=== PATIENT | male | born 1955 | race Caucasian/White ===

== ENCOUNTER → 2021-11-03 08:03 | Outpatient (BNVA) | payer OTHER, SELFPAY | PROVIDERS: PCP Internal Medicine; Visit Provider Internal Medicine Rheumatology | DX: Z79.899 Other long term (current) drug therapy (principal) ==

== ENCOUNTER 2022-03-30 10:57 | Outpatient (REF) | payer OTHER, MEDICARE, SELFPAY ==
[2022-03-30 11:12] LABS: MANUAL DIFF FLAG NO
[2022-03-30 11:47] LABS: Basophils Percent Auto 0.6 % (0-2); Eosinophils Absolute Auto 0.1 X10*3/uL (0.0-0.4); Hematocrit 45.3 % (42.0-52.0); Hemoglobin 14.4 g/dl (14.0-18.0); Imm Gran Abs Auto 0.01 X10*3/uL (0.00-0.03); Imm Gran Pct Auto 0.1 % (0.0-0.4); Lymphocytes Absolute Auto 1.5 X10*3/uL (1.2-4.9); Lymphocytes Percent Auto 22.3 % (20-40); Mean Corpuscular HGB Conc 31.8 g/dl (31.0-36.0); Mean Corpuscular Hemoglobin 28.5 pg (27.0-33.0); Mean Corpuscular Volume 89.7 fL (80.0-98.0); Mean Platelet Volume 8.9 fL (9.4-12.4); Monocytes Absolute Auto 0.6 X10*3/uL (0.1-1.2); Monocytes Percent Auto 8.2 % (2-11); Neutrophils Absolute Auto 4.6 x10*3/uL (2.0-8.3); Neutrophils Percent Auto 67.8 % (45-73); Platelet Count 297 X10*3/uL (160-400); Red Blood Count 5.05 X10*6/uL (4.60-5.80); White Blood Count 6.7 X10*3/uL (4.8-10.8)
[2022-03-30 12:10] LABS: Alanine Aminotransferase 13 U/L (0-40); Aspartate Amino Transferase 19 U/L (5-37); Estimated Glomerular Filt Rate > 60
[2022-03-30 12:26] LABS: Erythrocyte Sedimentation Rate 32 MM/HR (0-15)
== END 2022-03-30 10:58 | disposition home or self-care (01) ==
LOC: HO.LAB 10:57
PROVIDERS: PCP Internal Medicine; Visit Provider Internal Medicine Rheumatology
DX: M05.9 Rheumatoid arthritis with rheumatoid factor, unspecified (principal); Z79.899 Other long term (current) drug therapy
CPT/HCPCS: 36415; 82565; 84450; 84460; 85025; 85652; 86140

== ENCOUNTER 2022-07-30 10:18 | Outpatient (REF) | payer OTHER, MEDICARE, SELFPAY ==
[2022-07-30 10:27] LABS: MANUAL DIFF FLAG NO
[2022-07-30 10:52] LABS: Basophils Percent Auto 0.5 % (0-2); Eosinophils Absolute Auto 0.1 X10*3/uL (0.0-0.4); Hematocrit 47.5 % (42.0-52.0); Hemoglobin 15.3 g/dl (14.0-18.0); Imm Gran Abs Auto 0.02 X10*3/uL (0.00-0.03); Imm Gran Pct Auto 0.3 % (0.0-0.4); Lymphocytes Absolute Auto 1.6 X10*3/uL (1.2-4.9); Lymphocytes Percent Auto 26.9 % (20-40); Mean Corpuscular HGB Conc 32.2 g/dl (31.0-36.0); Mean Corpuscular Hemoglobin 29.4 pg (27.0-33.0); Mean Corpuscular Volume 91.3 fL (80.0-98.0); Mean Platelet Volume 9.1 fL (9.4-12.4); Monocytes Absolute Auto 0.5 X10*3/uL (0.1-1.2); Monocytes Percent Auto 8.9 % (2-11); Neutrophils Absolute Auto 3.6 x10*3/uL (2.0-8.3); Neutrophils Percent Auto 62.4 % (45-73); Platelet Count 219 X10*3/uL (160-400); White Blood Count 5.8 X10*3/uL (4.8-10.8)
[2022-07-30 11:19] LABS: Alanine Aminotransferase 28 U/L (0-40); Aspartate Amino Transferase 25 U/L (5-37); C Reactive Protein 0.17 mg/dL (< or = 0.50); Estimated Glomerular Filt Rate > 60
[2022-07-30 11:38] LABS: Erythrocyte Sedimentation Rate 3 MM/HR (0-15)
== END 2022-07-30 10:19 | disposition home or self-care (01) ==
LOC: HO.LAB 10:18
PROVIDERS: PCP Internal Medicine; Visit Provider Internal Medicine Rheumatology
DX: M05.9 Rheumatoid arthritis with rheumatoid factor, unspecified (principal); Z79.899 Other long term (current) drug therapy
CPT/HCPCS: 36415; 82565; 84450; 84460; 85025; 85652; 86140

== ENCOUNTER → 2022-08-06 08:06 | Outpatient (BNVA) | payer OTHER, MEDICARE, SELFPAY | PROVIDERS: PCP Internal Medicine; Visit Provider Internal Medicine Rheumatology | DX: Z13.89 Encounter for screening for other disorder (principal) ==

== ENCOUNTER 2022-11-19 08:03 | Outpatient (REF) | payer OTHER, MEDICARE, SELFPAY ==
[2022-11-19 08:17] LABS: MANUAL DIFF FLAG NO
[2022-11-19 08:34] LABS: Basophils Percent Auto 0.5 % (0-2); Eosinophils Absolute Auto 0.1 X10*3/uL (0.0-0.4); Eosinophils Percent Auto 1.9 % (0-4); Hematocrit 45.4 % (42.0-52.0); Hemoglobin 14.7 g/dl (14.0-18.0); Imm Gran Abs Auto 0.02 X10*3/uL (0.00-0.03); Imm Gran Pct Auto 0.3 % (0.0-0.4); Lymphocytes Absolute Auto 1.6 X10*3/uL (1.2-4.9); Lymphocytes Percent Auto 27.1 % (20-40); Mean Corpuscular HGB Conc 32.4 g/dl (31.0-36.0); Mean Corpuscular Hemoglobin 30.2 pg (27.0-33.0); Mean Corpuscular Volume 93.4 fL (80.0-98.0); Mean Platelet Volume 9.1 fL (9.4-12.4); Monocytes Absolute Auto 0.6 X10*3/uL (0.1-1.2); Monocytes Percent Auto 10.7 % (2-11); Neutrophils Absolute Auto 3.5 x10*3/uL (2.0-8.3); Neutrophils Percent Auto 59.5 % (45-73); Platelet Count 220 X10*3/uL (160-400); Red Blood Count 4.86 X10*6/uL (4.60-5.80); Red Cell Distribution Width 14.6 % (11.0-16.0); White Blood Count 5.8 X10*3/uL (4.8-10.8)
[2022-11-19 09:04] LABS: Alanine Aminotransferase 22 U/L (0-40); Aspartate Amino Transferase 23 U/L (5-37); Estimated Glomerular Filt Rate > 60
[2022-11-19 09:25] LABS: Erythrocyte Sedimentation Rate 6 MM/HR (0-15)
== END 2022-11-19 08:04 | disposition home or self-care (01) ==
LOC: HO.LAB 08:03
PROVIDERS: Visit Provider Internal Medicine Rheumatology
DX: M05.9 Rheumatoid arthritis with rheumatoid factor, unspecified (principal); Z79.899 Other long term (current) drug therapy
CPT/HCPCS: 36415; 82565; 84450; 84460; 85025; 85652; 86140

== ENCOUNTER 2022-11-19 08:16 | Outpatient (REF) | payer OTHER, MEDICARE, SELFPAY ==
--- NOTE | ~2022-11-19 | XR_ITS ---
EXAMINATION: XR KNEE, RIGHT CLINICAL INFORMATION: Rheumatoid arthritis with joint COMPARISON: None available. TECHNIQUE: Three views of the right knee. FINDINGS: Bone alignment is normal. No fracture or dislocation. Bone mineralization is normal. No erosions. Small osteophytes at the patellofemoral and femoral tibial joint. No significant joint effusion. XR/XR knee RT 3V IMPRESSION: Mild degenerative changes.
== END 2022-11-19 08:17 | disposition home or self-care (01) ==
LOC: HO.XRAY 08:16
PROVIDERS: Visit Provider Internal Medicine Rheumatology
DX: M05.9 Rheumatoid arthritis with rheumatoid factor, unspecified (principal)
CPT/HCPCS: 73562

== ENCOUNTER → 2022-11-23 08:00 | Outpatient (BNVA) | payer OTHER, MEDICARE, SELFPAY | PROVIDERS: PCP Internal Medicine; Visit Provider Internal Medicine Rheumatology ==

== ENCOUNTER 2023-03-19 09:56 | Outpatient (REF) | payer OTHER, MEDICARE, SELFPAY | END 2023-03-19 09:57 | disposition home or self-care (01) | LOC: HO.LAB 09:56 | PROVIDERS: PCP Internal Medicine; Visit Provider Internal Medicine Rheumatology | DX: M05.9 Rheumatoid arthritis with rheumatoid factor, unspecified (principal); Z79.899 Other long term (current) drug therapy | CPT/HCPCS: 36415; 82565; 84450; 84460; 85025; 85652; 86140 ==

== ENCOUNTER 2023-03-25 08:05 | Outpatient (AMB) | payer OTHER, MEDICARE, SELFPAY ==
--- NOTE | 2023-03-25 08:15 | MHC.OFFVIS ---
Intake Vital Signs 03/25/23 08:20 Height 5 ft 10 in Weight 192 lb 7.417 oz BMI 27.6 BP 130/72 Blood Pressure Location Lt brachial Position Sitting Pulse 81 Pulse Source Pulse Oximeter Temp 97.2 F Temp Source Skin Pulse Oximetry (%) 95 Oxygen Delivery Method Room Air Intake Visit Reasons: RA Intake Note: Patient presents today to follow up on RA. 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 Accompanied by: Self / Same As Patient Allergies NUTS Allergy (Intermediate, Uncoded 03/25/23 08:15) ITCHY THROAT STRAWBERRY Allergy (Intermediate, Uncoded 03/25/23 08:15) ITCHY THROAT Medication List - Last Reconciled 03/25/23 by Isael Vasquez MD albuterol sulfate 90 mcg/actuation (ProAir HFA) 2 puffs inhalation Q6H PRN finasteride 5 mg PO DAILY folic acid 1 mg PO DAILY hydrochlorothiazide 25 mg PO DAILY hydrocortisone 2.5% 1 appl topical BID PRN lisinopril 20 mg PO DAILY metformin ER 500 mg PO BID methotrexate sodium 15 mg (6 x 2.5 mg) PO QWEEK sulfasalazine one tab by mouth 5 times a day tadalafil 5 mg PO DAILY HPI HPI Comments History of Present Illness Details The patient returns for evaluation of his rheumatoid arthritis. He remains on 15 mg weekly methotrexate, folic acid 1 mg daily, and 2500 mg sulfasalazine spread through the day. He notes some pain in the right lateral knee. The knee had been bothersome before. It is more noticeable on stairs. There is no swelling seen. He also has some discomfort in the left wrist and right 5th PIP joint. There do not appear to be any side effects with the medications. He remains on finasteride for BPH and his blood pressure medicines. [facility] Medical History (Updated 11/23/22 @ 08:19 by Isael Vasquez MD) BPH associated with nocturia Long-term use of immunosuppressant medication Hypertension Type II diabetes mellitus with nephropathy Seropositive rheumatoid arthritis Social History Household Members: Spouse Housing: House Are you a primary direct care staffer to a significant other at home: No Do you presently have visiting nurse or other home services: No 75 years or older and lives alone: No Alcohol intake: never Patient Tobacco Use Status: Former Tobacco user Years Smoked: 12-13 years ago e-Cigarette/Vaping Use: Never Used service: No Current occupational status: employed 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 Card Details: Negative chest pain, edema and syncope Resp Details: Negative for SOB, cough and wheezing GI Details: Negative indigestion/heartburn, nausea, abdominal pain, bowel changes, diarrhea, constipation and bloody stool. Skin/Breast Details: He notes a slightly uncomfortable patch of red skin at the apex of the skull. Negative for itching, rash, hives, Raynaud's symptoms, sun sensitivity, and skin cancer Reese/Lymph Details: Negative for excessive bruising or bleeding. Physical Exam Vital Signs: Last Vital Signs Temp 97.2 F 03/25/23 08:20 Pulse 81 03/25/23 08:20 BP 130/72 03/25/23 08:20 Pulse Ox 95 03/25/23 08:20 Oxygen Delivery Method Room Air 03/25/23 08:20 BMI result Body Mass Index 27.6 APPEARANCE: Patient in no acute distress EYES no redness, pupils equal and reactive to light, eyelids normal EXTREMITIES: No edema, no calf tenderness, normal peripheral pulses. SKIN: There is a circular spot of slightly red skin the apex of the skull. This is minimally tender. The skin is slightly thickened suggesting underlying sebaceous cyst. I do not see any changes of the skin surface otherwise. JOINT EXAM: ?? JOINT EXAM: ?? Cervical Spine:.? Full range of motion without pain; no tenderness. Thoracic Spine:.? No scoliosis.? No tenderness on palpation. Lumbar Spine:.? Alignment normal.? Full range of motion without pain, no tenderness. Chest Wall:.? No tenderness, swelling, increased warmth or erythema. Hands:.? Right: There is slight pain with range of motion at the 5th PIP which shows some mild bony enlargement and mild tenderness. Other small joints in the hands done seem to be tender but there is some minimal bony enlargement at the PIP joints.? There is no soft tissue swelling or tenderness in the joints.? There is mild bony enlargement and tenderness at the base of the thumb.? He has no triggering, flexor tendon tenderness, increased warmth or erythema.? There is no thenar atrophy or sensory loss.? Left: Slight bony enlargement at the thumb IP and other PIP joints without tenderness. No soft tissue swelling, triggering, thenar atrophy or sensory loss. Wrists:? Right:? Mild pain with flexion at 45 degrees or extension at 30 degrees with some mild tenderness.? He has probably some slight soft tissue swelling but no redness or warmth.? Left:? Mild pain with flexion or extension at 60 degrees.? Mild tenderness with no swelling, redness or warmth.? Elbows:? Right:? Pain-free range of motion with no tenderness over the joint space or epicondyles.? No soft tissue swelling. Left: Normal pain-free range of motion without tenderness, swelling, increased warmth or erythema. Shoulders:?? Full range of motion without pain. No tenderness, weakness, swelling, increased warmth or erythema. Hips:.? Full range of motion without pain. Hip bursa:.? No tenderness. Knees:? Right: Slight lateral pain felt with the extremes of full extension. There is some minimal lateral compartment tenderness. There is some mild patellofemoral crepitus without redness or effusion. No popliteal tenderness or swelling.? No ligamentous laxity.? Left: ? Normal pain-free range of motion with mild patellofemoral crepitus.? No effusion, tenderness, swelling, increased warmth or erythema.? Ankles:.? Normal pain-free range of motion without tenderness, swelling, increased warmth or erythema. Feet:? Normal pain-free range of motion with mild 1st MTP bony enlargement.? No? tenderness, soft tissue swelling, increased warmth or erythema. ? ? Results Reviewed Results Reviewed: Laboratory Tests 03/19/23 10:15 WBC 5.7 Hgb 14.0 ESR 9 Creatinine 0.78 AST 19 ALT 14 C-Reactive Protein 0.[address] [address] XRay Report Signed Patient: Hany aGle : 1955 Acct:[id number] Age/Sex: 67 / M ADM Date: 11/19/[address]: Isael Vasquez MD Ordering Physician: Isael Vasquez MD Date of Service: 11/19/22 Procedure(s): XR knee RT 3V Accession Number(s): [id number] cc: Isael Vasquez MD~ EXAMINATION: XR KNEE, RIGHT CLINICAL INFORMATION: Rheumatoid arthritis with joint COMPARISON: None available. TECHNIQUE: Three views of the right knee. FINDINGS: Bone alignment is normal. No fracture or dislocation. Bone mineralization is normal. No erosions. Small osteophytes at the patellofemoral and femoral tibial joint. No significant joint effusion. XR/XR knee RT 3V IMPRESSION: Mild degenerative changes. Dictated By: Kaylen Cruz MD Assessment & Plan Assessment & Plan (1) Osteoarthritis of right knee: Code(s): M17.11 - Unilateral primary osteoarthritis, right knee (2) Long-term use of immunosuppressant medication: Code(s): Z79.899 - Other terminal clerk (current) drug therapy (3) Seropositive rheumatoid arthritis: Comment: Onset mid-2007; pos RF, MARCO. CCP Ab. sulfasalazine started 2008 Methotrexate added 12/29; ran out of methtrexate November 2021; methotrexate restarted 03/2022 Code(s): M05.9 - Rheumatoid arthritis with rheumatoid factor, unspecified Plan Rheumatoid arthritis with I believe fairly good control of synovitis with current treatment. The right wrist had changes of OA on previous x-ray from 2017 at [place]. Similarly a lot of the PIP changes I think are from osteoarthritis. The right knee has some mild lateral compartment osteophytes and some tenderness consistent with osteoarthritis. I demonstrated some quadriceps exercises for him to pursue for that. He could also be referred for physical therapy if need be. I think he should continue with current medications. The lab work looks good and should be repeated again in 2 months and 4 months. He has a red spot on his scalp. This could be a underlying sebaceous cyst or localized skin irritation from his shaving his head. I told him to watch this and if the redness increased he should see PCP or urgent care to consider some oral antibiotics. In the meantime he could try some topical bacitracin or Neosporin. I will order some hand films to see if he has any signs of a progressive erosive arthritis but I think it is likely to show mostly OA. Follow-up in 4 months is recommended. Orders: Orders C Reactive Protein Today M05.9 - Rheumatoid arthritis with rheumatoid factor, unspecified Alanine Aminotransferase Today M05.9 - Rheumatoid arthritis with rheumatoid factor, unspecified, Z79.899 - Other intermediate (current) drug therapy Aspartate Amino Transferase Today M05.9 - Rheumatoid arthritis with rheumatoid factor, unspecified, Z79.899 - Other intermediate (current) drug therapy Complete Blood Count Auto Diff Today M05.9 - Rheumatoid arthritis with rheumatoid factor, unspecified, Z79.899 - Other intermediate (current) drug therapy XR hand LT min 3V Today M05.9 - Rheumatoid arthritis with rheumatoid factor, unspecified XR hand RT min 3V Today M05.9 - Rheumatoid arthritis with rheumatoid factor, unspecified Erythrocyte Sedimentation Rate Today M05.9 - Rheumatoid arthritis with rheumatoid factor, unspecified Creatinine Today M05.9 - Rheumatoid arthritis with rheumatoid factor, unspecified, Z79.899 - Other intermediate (current) drug therapy Coding Level of Care Code Est Pt Level 3 (81707) Diagnoses Osteoarthritis of right knee M17.11 Long-term use of immunosuppressant medication Z79.899 Seropositive rheumatoid arthritis M05.9
[2023-03-25 08:20] VITALS: BP 130/72; PULSE 81; TEMP 36.2; O2SAT 95; BMI 27.6
== END 2023-03-25 08:53 | disposition home or self-care (01) ==
PROVIDERS: PCP Internal Medicine; Visit Provider Internal Medicine Rheumatology
DX: M05.79 Rheumatoid arthritis with rheumatoid factor of multiple sites without organ or systems involvement (principal); Z79.631 Long term (current) use of antimetabolite agent; M17.11 Unilateral primary osteoarthritis, right knee
CPT/HCPCS: 99214

== ENCOUNTER → 2023-03-25 08:05 | Outpatient (BNVA) | payer OTHER, MEDICARE, SELFPAY | PROVIDERS: PCP Internal Medicine; Visit Provider Internal Medicine Rheumatology ==

== ENCOUNTER 2023-04-05 09:54 | Outpatient (REF) | payer OTHER, MEDICARE, SELFPAY ==
--- NOTE | ~2023-04-05 | XR_ITS ---
EXAMINATION: XR HAND, RIGHT CLINICAL INFORMATION: Rheumatoid arthritis with rheumatoid factor. COMPARISON: None available. TECHNIQUE: PA, lateral, and oblique views of the right hand. FINDINGS: Bony alignment and mineralization are normal. There is a neutral ulnar variance. There is mild osteoarthritic change of the interphalangeal joint of the thumb. No fracture or dislocation is seen. The proximal and distal carpal rows are intact. There is mild osteoarthritic change of the first carpometacarpal joint. There is marked narrowing of the radiocarpal joint, with peripheral osteophyte formation. No abnormal bone erosion is seen. The ulnar styloid is intact. There is no focal soft tissue swelling, gas or foreign body. XR/XR hand LT min 3V IMPRESSION: 1. There is marked osteoarthritic change of the right radiocarpal joint. 2. There is mild osteoarthritic change of the interphalangeal joint of the thumb. 3. No abnormal bone erosion is seen. 4. There is no fracture or dislocation. EXAMINATION: XR HAND, LEFT CLINICAL INFORMATION: Rheumatoid arthritis with rheumatoid factor. COMPARISON: None available. TECHNIQUE: PA, lateral, and oblique views of the left hand. FINDINGS: Bony alignment and mineralization are normal. There is a neutral ulnar variance. There is mild osteoarthritic change of the interphalangeal joint of the thumb, with small periarticular calcification. Subchondral cyst formation is suspected of the second metacarpal head. No fracture or dislocation is seen. The proximal and distal carpal rows are intact. There is marked narrowing of the radiocarpal joint. No abnormal bone erosion is seen. The ulnar styloid is intact. There is no focal soft tissue swelling, gas or foreign body. IMPRESSION: 1. There is marked osteoarthritic change of the radiocarpal joint. 2. There is mild osteoarthritic change of the interphalangeal joint of the thumb. 3. No abnormal bone erosion is seen. 4. No fracture or dislocation is seen.
--- NOTE | ~2023-04-05 | XR_ITS ---
EXAMINATION: XR HAND, RIGHT CLINICAL INFORMATION: Rheumatoid arthritis with rheumatoid factor. COMPARISON: None available. TECHNIQUE: PA, lateral, and oblique views of the right hand. FINDINGS: Bony alignment and mineralization are normal. There is a neutral ulnar variance. There is mild osteoarthritic change of the interphalangeal joint of the thumb. No fracture or dislocation is seen. The proximal and distal carpal rows are intact. There is mild osteoarthritic change of the first carpometacarpal joint. There is marked narrowing of the radiocarpal joint, with peripheral osteophyte formation. No abnormal bone erosion is seen. The ulnar styloid is intact. There is no focal soft tissue swelling, gas or foreign body. XR/XR hand RT min 3V IMPRESSION: 1. There is marked osteoarthritic change of the right radiocarpal joint. 2. There is mild osteoarthritic change of the interphalangeal joint of the thumb. 3. No abnormal bone erosion is seen. 4. There is no fracture or dislocation. EXAMINATION: XR HAND, LEFT CLINICAL INFORMATION: Rheumatoid arthritis with rheumatoid factor. COMPARISON: None available. TECHNIQUE: PA, lateral, and oblique views of the left hand. FINDINGS: Bony alignment and mineralization are normal. There is a neutral ulnar variance. There is mild osteoarthritic change of the interphalangeal joint of the thumb, with small periarticular calcification. Subchondral cyst formation is suspected of the second metacarpal head. No fracture or dislocation is seen. The proximal and distal carpal rows are intact. There is marked narrowing of the radiocarpal joint. No abnormal bone erosion is seen. The ulnar styloid is intact. There is no focal soft tissue swelling, gas or foreign body. IMPRESSION: 1. There is marked osteoarthritic change of the radiocarpal joint. 2. There is mild osteoarthritic change of the interphalangeal joint of the thumb. 3. No abnormal bone erosion is seen. 4. No fracture or dislocation is seen.
[2023-04-05 10:14] LABS: MANUAL DIFF FLAG NO
[2023-04-05 10:52] LABS: Basophils Percent Auto 0.6 % (0-2); Eosinophils Absolute Auto 0.1 X10*3/uL (0.0-0.4); Eosinophils Percent Auto 1.3 % (0-4); Hematocrit 44.7 % (42.0-52.0); Hemoglobin 14.3 g/dl (14.0-18.0); Imm Gran Abs Auto 0.01 X10*3/uL (0.00-0.03); Imm Gran Pct Auto 0.2 % (0.0-0.4); Mean Corpuscular Hemoglobin 29.7 pg (27.0-33.0); Mean Corpuscular Volume 92.7 fL (80.0-98.0); Mean Platelet Volume 9.2 fL (9.4-12.4); Monocytes Absolute Auto 0.4 X10*3/uL (0.1-1.2); Monocytes Percent Auto 8.3 % (2-11); Neutrophils Absolute Auto 3.6 x10*3/uL (2.0-8.3); Neutrophils Percent Auto 69.6 % (45-73); Platelet Count 213 X10*3/uL (160-400); Red Blood Count 4.82 X10*6/uL (4.60-5.80); Red Cell Distribution Width 14.6 % (11.0-16.0); White Blood Count 5.2 X10*3/uL (4.8-10.8)
[2023-04-05 11:22] LABS: Alanine Aminotransferase 20 U/L (0-40); Aspartate Amino Transferase 23 U/L (5-37); C Reactive Protein 0.24 mg/dL (< or = 0.50); Estimated Glomerular Filt Rate > 60
[2023-04-05 11:28] LABS: Erythrocyte Sedimentation Rate 6 MM/HR (0-15)
== END 2023-04-05 09:55 | disposition home or self-care (01) ==
LOC: HO.LAB 09:54
PROVIDERS: PCP Internal Medicine; Visit Provider Internal Medicine Rheumatology
DX: M05.9 Rheumatoid arthritis with rheumatoid factor, unspecified (principal); Z79.899 Other long term (current) drug therapy
CPT/HCPCS: 36415; 73130; 82565; 84450; 84460; 85025; 85652; 86140

== ENCOUNTER 2023-07-27 08:17 | Outpatient (AMB) | payer OTHER, MEDICARE, SELFPAY ==
--- NOTE | 2023-07-27 08:31 | MHC.OFFVIS ---
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 Gale, 67yoM returns for follow-up his rheumatoid arthritis. He remains on 15 mg weekly methotrexate, folic acid 1 mg daily, and 2500 mg sulfasalazine spread through the day. He recounts as at last visit that there is pain in the right lateral knee. The knee had been bothersome before. It is more noticeable on stairs. There is no swelling seen. He also has some discomfort in the left wrist and right 5th PIP joint. 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 He reports that he has been to Derm for excision of cysts, one one the of head and the other left upper back. He also has a nodule to his right elbow that hurts if he bears weight on the elbow. There do not appear to be any side effects with the medications. He has diabetes, on Metformin, remains on finasteride for BPH and his blood pressure medicines. [facility] Medical History (Updated 07/27/23 @ 08:54 by [facility] Screening examination for infectious disease BPH associated with nocturia Long-term use of immunosuppressant medication Hypertension Type II diabetes mellitus with nephropathy Seropositive rheumatoid arthritis Social History Household Members: Spouse Housing: House Are you a primary care rep to a significant other at home: No Do you presently have visiting nurse or other home services: No 75 years or older and lives alone: No Alcohol intake: never Patient Tobacco Use Status: Former Tobacco user Years Smoked: 12-13 years ago e-Cigarette/Vaping Use: Never Used service: No Current occupational status: employed 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 Regular rhythm, S1-S2 heard, no murmurs, rubs or gallops. LUNG:? Clear to percussion and auscultation EXTREMITIES: No edema, no calf tenderness, normal peripheral pulses. SKIN: s/p excision of sebaceous cyst at the apex of the skull, erythematous with sutures. This is minimally tender. I do not see any changes of the skin surface otherwise. JOINT EXAM: Hands:.? Right: There is slight pain with range of motion at the 5th PIP which shows some mild bony enlargement and mild tenderness and swelling. Other small joints in the hands are not tender but there is minimal bony enlargement at the PIP joints.? There is no soft tissue swelling or tenderness in the joints.? There is mild bony enlargement and tenderness at the base of the thumb.? He has no triggering, flexor tendon tenderness, increased warmth or erythema.? There is no thenar atrophy or sensory loss.? Left: Slight bony enlargement at the thumb IP and other PIP joints without tenderness. No soft tissue swelling, triggering, thenar atrophy or sensory loss. Wrists:? Right:? Moderate pain with flexion at 45 degrees or extension at 30 degrees with moderate tenderness.? There is soft tissue swelling at the region of the ulnar styloid, warmth but no redness.? Left:? Mild pain with flexion or extension at 60 degrees.? Mild tenderness with no swelling, redness or warmth.? Elbows:? Right:? Pain-free range of motion with no tenderness over the joint space or epicondyles.? Nodule to right olecranon. Left: Normal pain-free range of motion without tenderness, swelling, increased warmth or erythema. Shoulders:?? Full range of motion without pain. No tenderness, weakness, swelling, increased warmth or erythema. Knees:? Right: Slight lateral pain felt with the extremes of full extension. There is some minimal lateral compartment tenderness. There is some mild patellofemoral crepitus without redness or effusion. No popliteal tenderness or swelling.? No ligamentous laxity.? Left: ? Normal pain-free range of motion with mild patellofemoral crepitus.? No effusion, tenderness, swelling, increased warmth or erythema.? Ankles:.? Normal pain-free range of motion without tenderness, swelling, increased warmth or erythema. Feet:? Normal pain-free range of motion with mild 1st MTP bony enlargement.? No? tenderness, soft tissue swelling, increased warmth or erythema. ? ? Results Reviewed Results Reviewed: Laboratory Tests 03/19/23 10:15 WBC 5.7 Hgb 14.0 ESR 9 Creatinine 0.78 AST 19 ALT 14 C-Reactive Protein 0.59 [address] [place] [id number] XRay Report Signed Patient: Hany Gale : 1955 Acct:[id number] Age/Sex: 67 / M ADM Date: 11/19/[address]: Isael Vasquez MD Ordering Physician: Isael Vasquez MD Date of Service: 11/19/22 Procedure(s): XR knee RT 3V Accession Number(s): [id number] cc: Isael Vasquez MD~ EXAMINATION: XR KNEE, RIGHT CLINICAL INFORMATION: Rheumatoid arthritis with joint COMPARISON: None available. TECHNIQUE: Three views of the right knee. FINDINGS: Bone alignment is normal. No fracture or dislocation. Bone mineralization is normal. No erosions. Small osteophytes at the patellofemoral and femoral tibial joint. No significant joint effusion. XR/XR knee RT 3V IMPRESSION: Mild degenerative changes. Dictated By: Kaylen Cruz MD Assessment & Plan Assessment & Plan (1) Osteoarthritis of right knee: Code(s): M17.11 - Unilateral primary osteoarthritis, right knee Qualifiers: Osteoarthritis type: primary Qualified Code(s): M17.11 - Unilateral primary osteoarthritis, right knee (2) Long-term use of immunosuppressant medication: Code(s): Z79.899 - Other rodent exterminator (current) drug therapy (3) Seropositive rheumatoid arthritis: Comment: Onset mid-2007; pos RF, MARCO. CCP Ab. sulfasalazine started 2008 Methotrexate added 12/29; ran out of methtrexate November 2021; methotrexate restarted 03/2022 Code(s): M05.9 - Rheumatoid arthritis with rheumatoid factor, unspecified (4) Screening examination for infectious disease: Code(s): Z11.9 - Encounter for screening for infectious and parasitic diseases, unspecified (5) Sebaceous cyst: Code(s): L72.3 - Sebaceous cyst Plan #SeroPos RA: It appears that the patient has been having pain and intermittent swelling to the right wrist and some PIP joints for sometime now. I believe the RA is not well control with current treatment. I will add HUMIRA 40mg QOW and reassess. 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 There is also a firm nodule to the right elbow that looks like an RA nodule. We know that using MTX can causes these to develop. We will consider to stop SLZ and reduce MTX once HUMIRA is on board and hopefully this will resolve. He will continue MTX 15mg QW, folic acid 1 mg daily, and Sulfasalazine 2500 mg QD. #OA multiple joints: There is no doubt that some of the discomfort to his hands and knees is from OA. The right wrist had changes of OA on previous x-ray from 2017 at [place]. Similarly a lot of the PIP changes I think are from osteoarthritis. The right knee has some mild lateral compartment osteophytes and some tenderness consistent with osteoarthritis. He could also be referred for physical therapy if need be. #Sabaceous Cyst: S/P excision from apex of scalp. I told him to watch this and ensure that the healing progresses normally without infection or delay. #Retirement Use/Screening: His labs looks good to continue Methotrexate. I will order Hep panel and TB for HUMIRA start. I discussed some points of HUMIRA with the patient. He is to stop HUMIRA if he has a fever, infection, cancer diagnosis or non-healing wound. We will wait until the scalp excision has healed before the first injection. I spent 35 minutes reviewing chart, evaluating patient, ordering and documenting. Follow-up in 3 months - hopefully he would have started HUMIRA by then and seen improvement Orders: Orders T Spot TB Today Z11.9 - Encounter for screening for infectious and parasitic diseases, unspecified, Z79.899 - Other rodent exterminator (current) drug therapy Hepatitis A,B,C Profile Today Z11.9 - Encounter for screening for infectious and parasitic diseases, unspecified, Z79.899 - Other rodent exterminator (current) drug therapy Coding Level of Care Code Est Pt Level 4 (75908) Diagnoses Primary osteoarthritis of right knee M17.11 Osteoarthritis type: primary Long-term use of immunosuppressant medication Z79.899 Seropositive rheumatoid arthritis M05.9 Screening examination for infectious disease Z11.9 Sebaceous cyst L72.3
[2023-07-27 08:37] VITALS: BP 128/70; PULSE 85; TEMP 36.3; O2SAT 98; BMI 28.6
== END 2023-07-27 09:17 | disposition home or self-care (01) ==
PROVIDERS: PCP Internal Medicine; Visit Provider Nurse Practitioner Family
DX: M05.79 Rheumatoid arthritis with rheumatoid factor of multiple sites without organ or systems involvement (principal); M17.11 Unilateral primary osteoarthritis, right knee; Z79.899 Other long term (current) drug therapy; Z11.9 Encounter for screening for infectious and parasitic diseases, unspecified; L72.3 Sebaceous cyst
CPT/HCPCS: 99214

== ENCOUNTER → 2023-07-27 08:17 | Outpatient (BNVA) | payer OTHER, MEDICARE, SELFPAY | PROVIDERS: PCP Internal Medicine; Visit Provider Nurse Practitioner Family ==

== ENCOUNTER 2023-07-27 09:15 | Outpatient (REF) | payer OTHER, MEDICARE, SELFPAY ==
[2023-07-28 03:35] LABS: HBS Num1 0.46 mIU/mL (0-7.99); HBc Num1 0.12 S/CO (0.00-0.79); HBsAGNum1 0.46 S/CO (0.00-0.99); Hepatitis B Core Antibody Nonreactive (Nonreactive); Hepatitis B Surface Antigen Negative (Negative); ~Hepatitis B Surface Antibody NONREACTIVE (Nonreactive); ~Hepatitis C Antibody Nonreactive (Nonreactive)
[2023-07-28 03:41] LABS: Hepatitis A Antibody IgM 0.18 Index (0-0.79)
[2023-07-28 03:42] LABS: ~Hepatitis A Antibody IgM Nonreactive (Nonreactive)
[2023-07-29 22:58] LABS: TS Negative Control Passed; TS Panel A 0; TS Panel B 0; TS Positive Control Passed; TSpotTB Negative (Negative)
== END 2023-07-27 09:16 | disposition home or self-care (01) ==
LOC: HO.10HDL 09:15
PROVIDERS: Visit Provider Nurse Practitioner Family
DX: Z11.1 Encounter for screening for respiratory tuberculosis (principal); E11.9 Type 2 diabetes mellitus without complications; Z79.899 Other long term (current) drug therapy
CPT/HCPCS: 36415; 86481; 86704; 86706; 86709; 86803; 87340

== ENCOUNTER 2023-10-25 08:56 | Outpatient (REF) | payer OTHER, MEDICARE, SELFPAY ==
[2023-10-25 09:12] LABS: MANUAL DIFF FLAG NO
[2023-10-25 09:53] LABS: Basophils Percent Auto 0.5 % (0-2); Eosinophils Absolute Auto 0.1 X10*3/uL (0.0-0.4); Hematocrit 45.5 % (42.0-52.0); Hemoglobin 14.7 g/dl (14.0-18.0); Imm Gran Abs Auto 0.02 X10*3/uL (0.00-0.03); Imm Gran Pct Auto 0.3 % (0.0-0.4); Lymphocytes Absolute Auto 2.2 X10*3/uL (1.2-4.9); Lymphocytes Percent Auto 37.1 % (20-40); Mean Corpuscular HGB Conc 32.3 g/dl (31.0-36.0); Mean Corpuscular Hemoglobin 29.5 pg (27.0-33.0); Mean Corpuscular Volume 91.4 fL (80.0-98.0); Monocytes Absolute Auto 0.6 X10*3/uL (0.1-1.2); Monocytes Percent Auto 9.8 % (2-11); Neutrophils Absolute Auto 3.1 x10*3/uL (2.0-8.3); Neutrophils Percent Auto 51.3 % (45-73); Platelet Count 175 X10*3/uL (160-400); Red Blood Count 4.98 X10*6/uL (4.60-5.80); Red Cell Distribution Width 14.4 % (11.0-16.0)
[2023-10-25 10:32] LABS: Erythrocyte Sedimentation Rate 3 MM/HR (0-15)
[2023-10-25 11:17] LABS: Alanine Aminotransferase 23 U/L (0-40); Alkaline Phosphatase 92 U/L (39-117); Anion Gap 13 (12-20); Aspartate Amino Transferase 23 U/L (5-37); Bilirubin Total 0.6 mg/dL (0.0-1.0); Blood Urea Nitrogen 19 mg/dL (9-16); C Reactive Protein 0.22 mg/dL (< or = 0.50); Calcium 9.6 mg/dL (8.4-10.2); Carbon Dioxide 28 mmol/L (22-29); Chloride 103 mmol/L (96-108); Estimated Glomerular Filt Rate > 60; Glucose Random 108 mg/dL (60-115); Potassium 4.1 mmol/L (3.3-5.1); Sodium 140 mmol/L (135-145); Total Protein 7.2 g/dL (6.5-8.0)
== END 2023-10-25 08:57 | disposition home or self-care (01) ==
LOC: HO.LAB 08:56
PROVIDERS: PCP Internal Medicine; Visit Provider Student in an Organized Health Care Education/Training Program
DX: Z79.899 Other long term (current) drug therapy (principal)
CPT/HCPCS: 36415; 80053; 85025; 85652; 86140

== ENCOUNTER 2023-11-11 08:32 | Outpatient (AMB) | payer OTHER, MEDICARE, SELFPAY ==
--- NOTE | 2023-11-11 08:35 | A.OFFVIS_ITS ---
Vital Signs 11/11/23 08:42 Height 5 ft 10 in Weight 199 lb 15.348 oz BMI 28.7 BP 110/70 Blood Pressure Location Rt brachial Position Sitting Pulse 89 Pulse Oximetry (%) 96 Intake Visit Reasons: RA/cm Intake Note: Patient last seen 07/27/23, presents today for RA follow up and test results. Reports on going mohsen wrist pain. Allergies NUTS Allergy (Intermediate, Uncoded 11/11/23 08:43) ITCHY THROAT STRAWBERRY Allergy (Intermediate, Uncoded 11/11/23 08:43) ITCHY THROAT HPI Comments Details: Mr. Gale, 67yoM returns for follow-up his rheumatoid arthritis. He remains on 15 mg weekly methotrexate, folic acid 1 mg daily, and 2500 mg sulfasalazine spread through the day. He recounts as at last visit that there is pain in the right lateral knee. The knee had been bothersome before. It is more noticeable on stairs. There is no swelling seen. He also has some discomfort in the left wrist and right 5th PIP joint. 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 He reports that he has been to Derm for excision of cysts, one one the of head and the other left upper back. He also has a nodule to his right elbow that hurts if he bears weight on the elbow. There do not appear to be any side effects with the medications. He has diabetes, on Metformin, remains on finasteride for BPH and his blood pressure medicines. 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 Screening examination for infectious disease BPH associated with nocturia Long-term use of immunosuppressant medication Hypertension Type II diabetes mellitus with nephropathy Seropositive rheumatoid arthritis Social History Household Members: Spouse Housing: House Are you a primary neonatal intensive care unit nurse to a significant other at home: No Do you presently have visiting nurse or other home services: No 75 years or older and lives alone: No Alcohol intake: never Patient Tobacco Use Status: Former Tobacco user Years Smoked: 12-13 years ago e-Cigarette/Vaping Use: Never Used service: No Current occupational status: employed 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 Regular rhythm, S1-S2 heard, no murmurs, rubs or gallops. LUNG:? Clear to percussion and auscultation EXTREMITIES: No edema, no calf tenderness, normal peripheral pulses. SKIN: s/p excision of sebaceous cyst at the apex of the skull, fully healed. JOINT EXAM: Hands:.? Right: There is no more slight pain with range of motion at the 5th PIP which shows some mild bony enlargement and mild tenderness and swelling. Other small joints in the hands are not tender but there is minimal bony enlargement at the PIP joints.? There is no soft tissue swelling or tenderness in the joints.? There is mild bony enlargement and tenderness at the base of the thumb.? He has no triggering, flexor tendon tenderness, increased warmth or erythema.? There is no thenar atrophy or sensory loss.? Left: Slight bony enlargement at the thumb IP and other PIP joints without tenderness. No soft tissue swelling, triggering, thenar atrophy or sensory loss. Wrists:? Right:? Moderate pain with flexion at 45 degrees or extension at 30 degrees with moderate tenderness.? There is soft tissue swelling at the region of the ulnar styloid, warmth but no redness.? Left:? Mild pain with flexion or extension at 60 degrees.? Mild tenderness with no swelling, redness or warmth.? Elbows:? Right:? Pain-free range of motion with no tenderness over the joint space or epicondyles.? Nodule to right olecranon. Left: Normal pain-free range of motion without tenderness, swelling, increased warmth or erythema. Shoulders:?? Full range of motion without pain. No tenderness, weakness, swelling, increased warmth or erythema. Knees:? Right: Slight lateral pain felt with the extremes of full extension. There is some minimal lateral compartment tenderness. There is some mild patellofemoral crepitus without redness or effusion. No popliteal tenderness or swelling.? No ligamentous laxity.? Left: ? Normal pain-free range of motion with mild patellofemoral crepitus.? No effusion, tenderness, swelling, increased warmth or erythema.? Ankles:.? Normal pain-free range of motion without tenderness, swelling, increased warmth or erythema. Feet:? Normal pain-free range of motion with mild 1st MTP bony enlargement.? No? tenderness, soft tissue swelling, increased warmth or erythema. ? ? Results Reviewed Results Reviewed: Laboratory Tests 03/19/23 10:15 WBC 5.7 Hgb 14.0 ESR 9 Creatinine 0.78 AST 19 ALT 14 C-Reactive Protein 0.[address] [address] XRay Report Signed Patient: Hany Gale : 1955 Acct:[id number] Age/Sex: 67 / M ADM Date: 11/19/[address]: Isael Vasquez MD Ordering Physician: Isael Vasquez MD Date of Service: 11/19/22 Procedure(s): XR knee RT 3V Accession Number(s): [id number] cc: Isael Vasquez MD~ EXAMINATION: XR KNEE, RIGHT CLINICAL INFORMATION: Rheumatoid arthritis with joint COMPARISON: None available. TECHNIQUE: Three views of the right knee. FINDINGS: Bone alignment is normal. No fracture or dislocation. Bone mineralization is normal. No erosions. Small osteophytes at the patellofemoral and femoral tibial joint. No significant joint effusion. XR/XR knee RT 3V IMPRESSION: Mild degenerative changes. Dictated By: Kaylen Cruz MD Laboratory Tests 10/25/23 09:10 WBC 6.0 RBC 4.98 Hgb 14.7 Hct 45.5 ESR 3 Creatinine 0.86 AST 23 ALT 23 EXAMINATION: XR HAND, RIGHT CLINICAL INFORMATION: Rheumatoid arthritis with rheumatoid factor. COMPARISON: None available. TECHNIQUE: PA, lateral, and oblique views of the right hand. FINDINGS: Bony alignment and mineralization are normal. There is a neutral ulnar variance. There is mild osteoarthritic change of the interphalangeal joint of the thumb. No fracture or dislocation is seen. The proximal and distal carpal rows are intact. There is mild osteoarthritic change of the first carpometacarpal joint. There is marked narrowing of the radiocarpal joint, with peripheral osteophyte formation. No abnormal bone erosion is seen. The ulnar styloid is intact. There is no focal soft tissue swelling, gas or foreign body. XR/XR hand RT min 3V IMPRESSION: 1. There is marked osteoarthritic change of the right radiocarpal joint. 2. There is mild osteoarthritic change of the interphalangeal joint of the thumb. 3. No abnormal bone erosion is seen. 4. There is no fracture or dislocation. EXAMINATION: XR HAND, LEFT CLINICAL INFORMATION: Rheumatoid arthritis with rheumatoid factor. COMPARISON: None available. TECHNIQUE: PA, lateral, and oblique views of the left hand. FINDINGS: Bony alignment and mineralization are normal. There is a neutral ulnar variance. There is mild osteoarthritic change of the interphalangeal joint of the thumb, with small periarticular calcification. Subchondral cyst formation is suspected of the second metacarpal head. No fracture or dislocation is seen. The proximal and distal carpal rows are intact. There is marked narrowing of the radiocarpal joint. No abnormal bone erosion is seen. The ulnar styloid is intact. There is no focal soft tissue swelling, gas or foreign body. IMPRESSION: 1. There is marked osteoarthritic change of the radiocarpal joint. 2. There is mild osteoarthritic change of the interphalangeal joint of the thumb. 3. No abnormal bone erosion is seen. 4. No fracture or dislocation is seen. Assessment & Plan Assessment & Plan (1) Long-term use of immunosuppressant medication: Code(s): Z79.899 - Other long term care administrator (current) drug therapy Category: Medical (2) Seropositive rheumatoid arthritis: Comment: Onset mid-2007; pos RF, MARCO. CCP Ab. sulfasalazine started 2008 Methotrexate added 12/29; ran out of methtrexate November 2021; methotrexate re started 03/2022 Code(s): M05.9 - Rheumatoid arthritis with rheumatoid factor, unspecified Category: Medical (3) Osteoarthritis of both wrists: Code(s): M19.031 - Primary osteoarthritis, right wrist; M19.032 - Primary osteoarthritis, left wrist Category: Medical Qualifiers: Osteoarthritis type: other secondary Qualified Code(s): M19.231 - Secondary osteoarthritis, right wrist; M19.232 - Secondary osteoarthritis, left wrist (4) Low grade B cell lymphoproliferative disorder: Code(s): D47.Z9 - Other specified neoplasms of uncertain behavior of lymphoid, hematopoietic and related tissue Category: Medical Plan #SeroPos RA: The patient reports overall improvement since starting HUMRIRA 40mg EOW and has had 3 injections. However, he continues with wrist pain to both. He will restart MTX 15mg QW, folic acid 1 mg daily, and continue Sulfasalazine 2500 mg QD. At next visit consider to stop SLZ. 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 He may benefit from wrist joint injection best done US by Ortho. Will Send referral. #Scalp Lesion/Low Grade Lypmhp B cells: S/P excision from apex of scalp now healed. RA medications were held for some time. Oncology reports Low Grade B lymphoma cells and was worked up by oncology. Per Oncology, we are clear to continue therapy for RA. 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 I discussed some points of HUMIRA with the patient and reiterate that he is to stop HUMIRA if he has a fever, infection, cancer diagnosis or non-healing wound and surgery. I spent 30 minutes reviewing chart, evaluating patient, ordering and documenting. Follow-up in 4 months - Orders: Orders Erythrocyte Sedimentation Rate Today M05.9 - Rheumatoid arthritis with rheumatoid factor, unspecified, Z79.899 - Other long term care administrator (current) drug therapy Complete Blood Count Auto Diff Today M05.9 - Rheumatoid arthritis with rheumatoid factor, unspecified, Z79.899 - Other long term care administrator (current) drug therapy Comprehensive Met. Panel Today M05.9 - Rheumatoid arthritis with rheumatoid factor, unspecified, Z79.899 - Other fpc (current) drug therapy C Reactive Protein Today M05.9 - Rheumatoid arthritis with rheumatoid factor, unspecified, Z79.899 - Other fpc (current) drug therapy Referrals Orthopedics Referral M19.231 - Secondary osteoarthritis, right wrist, M19.232 - Secondary osteoarthritis, left wrist Medications: Refilled methotrexate sodium 15 mg (6 x 2.5 mg) PO QWEEK 77 tabs 1RF M05.9 - Rheumatoid arthritis with rheumatoid factor, unspecified Coding Level of Care Code Est Pt Level 4 (43966) Complex EM visit Add On G2211 Diagnoses Long-term use of immunosuppressant medication Z79.899 Seropositive rheumatoid arthritis M05.9 Other secondary osteoarthritis of both wrists M19.231; M19.232 Osteoarthritis type: other secondary Low grade B cell lymphoproliferative disorder D47.Z9
[2023-11-11 08:42] VITALS: BP 110/70; PULSE 89; O2SAT 96; BMI 28.7
== END 2023-11-11 09:06 | disposition home or self-care (01) ==
PROVIDERS: PCP Internal Medicine; Visit Provider Nurse Practitioner Family
DX: M05.79 Rheumatoid arthritis with rheumatoid factor of multiple sites without organ or systems involvement (principal); Z79.899 Other long term (current) drug therapy; M19.231 Secondary osteoarthritis, right wrist; M19.232 Secondary osteoarthritis, left wrist; D47.Z9 Other specified neoplasms of uncertain behavior of lymphoid, hematopoietic and related tissue
CPT/HCPCS: 99214; G2211

== ENCOUNTER → 2023-11-11 08:32 | Outpatient (BNVA) | payer OTHER, MEDICARE, SELFPAY | PROVIDERS: PCP Internal Medicine; Visit Provider Nurse Practitioner Family ==

== ENCOUNTER 2023-12-08 10:59 | Outpatient (AMB) | payer OTHER, MEDICARE, SELFPAY ==
--- NOTE | 2023-12-08 11:08 | MHC.OFFVIS ---
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 Patient reports his right wrist has been on going sharp pains for roughly 5 years plus and the left wrist pain has started roughly a year ago getting progressively worse. Pain and swelling in both wrist are located on the dorsal aspect of his wrist. He expresses a 9 out of 10 pain with flexion and extension. 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 He denies numbness and tingling and recent injuries. Right wrist hurt more than left but now the pain is equal in both wrist. I asked patient if he has history of DM but he is unsure if he is diabetic or not. 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 He complains of bilateral dorsal wrist pain, worse with flexion or extension. He says his right wrist has had pain for ~5 years now, and his left wrist for ~1 year. He says his pain is 9/10 today, R>L. To further clarify that, he did not have much in the way of pain sitting here today but demonstrates that when he moves his wrist into full extension or other positions that is when he feels pain that can reach 9/10. 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 He says this causes him some discomfort. 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 He denies any recent injury and is unsure about a possible wrist injury from several years ago. He denies any numbness, tingling, or prior treatment. He has RA and is taking Humira & Methotrexate, he follows with Dr. Amaya and says this is currently well-controlled. He says he is unsure if he is Diabetic but he does take Metformin daily. 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 Screening examination for infectious disease BPH associated with nocturia Long-term use of immunosuppressant medication Hypertension Type II diabetes mellitus with nephropathy Seropositive rheumatoid arthritis Social History (Updated 12/08/23 @ 11:28 by TOMER Cardenas) Household Members: Spouse Housing: House Are you a primary day care teacher to a significant other at home: No Do you presently have visiting nurse or other home services: No 75 years or older and lives alone: No Alcohol intake: never Patient Tobacco Use Status: Former Tobacco user Years Smoked: 12-13 years ago e-Cigarette/Vaping Use: Never Used service: No Current occupational status: employed 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 Review of Systems Const All systems reviewed & are unremarkable except as noted in HPI and below Physical Exam Vital Signs: BMI result Body Mass Index 27.3 Const General: cooperative, healthy appearing and no acute distress Orientation/consciousness: patient oriented x3 HEENT Head: Yes normocephalic and Yes atraumatic Eyes EOM: EOMs intact bilaterally Resp Effort & Inspection: normal respiratory effort and able to speak in complete sentences Cardio Jugular venous distension: no JVD Skin General skin exam: turgor normal Rashes: no rashes Neuro General: patient oriented x3 Extrem Other: Evaluation of Bilateral Upper Extremity: The patient is alert, oriented, and in no acute distress Neuro: Median, Ulnar, Radial nerves motor and sensory intact and sensation is normal to the tips of all digits Vascular: Cap refill brisk ROM: He can make a fist and extend all his digits No locking or catching When making a fist with good strength he has pain in the radial side of his wrist joints Most TTP over the radioscaphoid joints bilaterally Skin: No lacerations or abrasions. General: No Ecchymosis. No Erythema or evidence of infection. Radiographs: 3 views of bilateral wrists from 04/05/23 were reviewed by me today in clinic. Concerning the right wrist: He has a SLAC wrist deformity with complete loss of radioscaphoid joint space, good preservation of the radiolunate space with concerns of possible arthritic changes at the mid-carpal joint Concerning the left wrist: He has a SLAC wrist deformity with near-complete loss of radioscaphoid joint space, & widening of the scapholunate interval, good preservation of the radiolunate joint Psych Appearance: grossly normal Affect: normal affect Attitude: cooperative Assessment & Plan Assessment & Plan (1) Scapholunate advanced collapse of right wrist: Code(s): M19.131 - Post-traumatic osteoarthritis, right wrist Category: Medical (2) Scapholunate advanced collapse of left wrist: Code(s): M19.132 - Post-traumatic osteoarthritis, left wrist Category: Medical (3) Seropositive rheumatoid arthritis: Comment: Onset mid-2007; pos RF, MARCO. CCP Ab. sulfasalazine started 2008 Methotrexate added 12/29; ran out of methtrexate November 2021; methotrexate restarted 03/2022 Code(s): M05.9 - Rheumatoid arthritis with rheumatoid factor, unspecified Category: Medical (4) Long-term use of immunosuppressant medication: Code(s): Z79.899 - Other ad terminal makeup operator (current) drug therapy Category: Medical Plan Assessment & Plan: 1. Right SLAC wrist 2. Left SLAC wrist This is his primary complaint today I educated him about this condition I discussed operative and non-operative treatment options The patient would like to proceed with an injection & bracing, beginning with his right wrist He was fitted for bilateral volar wrist braces to wear with daily activities, when needed. I discussed activity modification, he should limit or avoid any heavy gripping or lifting activities which cause him pain Injection #1: The risks and benefits of a steroid injection including but not limited to risk of damage to blood vessels, nerve, tendon, infection, skin bleaching, persistent or worsening pain, and failure to improve symptoms were discussed with the patient and they wish to proceed with the steroid injection. Once consent was obtained the skin over the dorsum of the left scapholunate interval was sterilely prepped. The joint was then injected with a combination of 1 mL of (40 mg/ml} Depo-Medrol and 1% plain Lidocaine, using the mini C-arm for needle guidance. The patient appears to have tolerated the procedure well and with no complications. He had good early relief before leaving clinic today. He knows that they may not have another steroid injection into this joint for least 4 months. He will follow up in the next few weeks to discuss a possible right wrist injection Scribed for Ellie Majano MD by Vijay Perez medical surgery nurse, on 12/08/23 at 11:45 AM, EST. Orders: Orders FL guided needle placement Today M19.131 - Post-traumatic osteoarthritis, right wrist, M19.132 - Post-traumatic osteoarthritis, left wrist Coding Level of Care Code New Pt Level 4 (08125) Diagnoses Scapholunate advanced collapse of right wrist M19.131 Scapholunate advanced collapse of left wrist M19.132 Seropositive rheumatoid arthritis M05.9 Long-term use of immunosuppressant medication Z79.899
[2023-12-08 11:19] VITALS: BMI 27.3
== END 2023-12-08 12:45 | disposition home or self-care (01) ==
PROVIDERS: PCP Internal Medicine; Visit Provider Orthopaedic Surgery
DX: M19.131 Post-traumatic osteoarthritis, right wrist (principal); M19.132 Post-traumatic osteoarthritis, left wrist; M05.9 Rheumatoid arthritis with rheumatoid factor, unspecified; Z79.899 Other long term (current) drug therapy
CPT/HCPCS: 20605; 77002; 99204

== ENCOUNTER 2023-12-08 10:59 | Outpatient (REF) | payer OTHER, MEDICARE, SELFPAY | END 2023-12-08 11:00 | disposition home or self-care (01) | LOC: HO.HOSX 10:59 | PROVIDERS: PCP Internal Medicine; Visit Provider Orthopaedic Surgery | DX: M19.032 Primary osteoarthritis, left wrist (principal); M19.031 Primary osteoarthritis, right wrist; M05.9 Rheumatoid arthritis with rheumatoid factor, unspecified; Z79.899 Other long term (current) drug therapy | CPT/HCPCS: 20605; 77002; J0665; J1010 ==

== ENCOUNTER 2024-01-12 09:51 | Outpatient (REF) | payer OTHER, MEDICARE, SELFPAY | END 2024-01-12 09:52 | disposition home or self-care (01) | LOC: HO.HOSX 09:51 | PROVIDERS: PCP Internal Medicine; Visit Provider Orthopaedic Surgery | DX: Z13.89 Encounter for screening for other disorder (principal) ==

== ENCOUNTER 2024-01-12 09:51 | Outpatient (AMB) | payer OTHER, MEDICARE, SELFPAY ==
--- NOTE | 2024-01-12 10:15 | MHC.OFFVIS ---
Intake Visit Reasons: INJ- RT wrist inj OA Intake Note: Hany is a 68 yo right hand dominant male who presents today for a right wrist injection. Patient reports injection to the left had was not as effective but we wishes to proceed with right wrist injection. Denies numbness, tingling, locking on fingers. Allergies NUTS Allergy (Intermediate, Uncoded 01/12/24 10:18) ITCHY THROAT STRAWBERRY Allergy (Intermediate, Uncoded 01/12/24 10:18) ITCHY THROAT HPI HPI INJ- RT wrist inj OA: Details: Hany is a 68 year old right hand dominant man who returns to discuss his bilateral SLAC wrists. he is S/P left wrist injection on 12/08/23, he says this injection was only somewhat helpful but he would like to discuss a right wrist injection today. He complains of bilateral dorsal radial wrist pain, worse with flexion or extension. Despite the injection for his left wrist last month, He feels his left wrist hurts more now than it did prior to his injection. He is seen today thinking that he might want to try an injection for his right wrist. In talking with him, he does not have pain at rest in his right wrist, but only when he is using the right wrist for activities. The right wrist is not particularly bothersome. 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 He says this causes him some discomfort. 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 He denies any numbness, tingling, or prior treatment. He has RA and is taking Humira & Methotrexate, he follows with Dr. Amaya and says this is currently well-controlled. He says he is unsure if he is Diabetic but he does take Metformin daily. 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 Screening examination for infectious disease BPH associated with nocturia Long-term use of immunosuppressant medication Hypertension Type II diabetes mellitus with nephropathy Seropositive rheumatoid arthritis Social History (Updated 12/08/23 @ 11:28 by TOMER Cardenas) Household Members: Spouse Housing: House Are you a primary director of primary care to a significant other at home: No Do you presently have visiting nurse or other home services: No 75 years or older and lives alone: No Alcohol intake: never Patient Tobacco Use Status: Former Tobacco user Years Smoked: 12-13 years ago e-Cigarette/Vaping Use: Never Used service: No Current occupational status: employed 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 Physical Exam Extrem Other: Evaluation of Bilateral Upper Extremity: The patient is alert, oriented, and in no acute distress Neuro: Median, Ulnar, Radial nerves motor and sensory intact and sensation is normal to the tips of all digits Vascular: Cap refill brisk ROM: He can make a fist and extend all his digits No locking or catching Minimally tender over the radioscaphoid joint of the right wrist Right wrist: ~5 degrees extension ~35-40 degrees flexion Left wrist: ~10 degrees extension ~40-45 degrees flexion Radiographs: 3 views of bilateral wrists from 04/05/23 were reviewed by me today in clinic. Concerning the right wrist: He has a SLAC wrist deformity with complete loss of radioscaphoid joint space, good preservation of the radiolunate space with concerns of possible arthritic changes at the mid-carpal joint Concerning the left wrist: He has a SLAC wrist deformity with near-complete loss of radioscaphoid joint space, & widening of the scapholunate interval, good preservation of the radiolunate joint Assessment & Plan Assessment & Plan (1) Scapholunate advanced collapse of right wrist: Code(s): M19.131 - Post-traumatic osteoarthritis, right wrist Category: Medical (2) Scapholunate advanced collapse of left wrist: Code(s): M19.132 - Post-traumatic osteoarthritis, left wrist Category: Medical (3) Seropositive rheumatoid arthritis: Comment: Onset mid-2007; pos RF, MARCO. CCP Ab. sulfasalazine started 2008 Methotrexate added 12/29; ran out of methtrexate November 2021; methotrexate restarted 03/2022 Code(s): M05.9 - Rheumatoid arthritis with rheumatoid factor, unspecified Category: Medical (4) Long-term use of immunosuppressant medication: Code(s): Z79.899 - Other assisted (current) drug therapy Category: Medical Plan Assessment & Plan: 1. Right SLAC wrist Not particularly painful at rest. Pain with activities 2. Left SLAC wrist, S/P injection Date of injection: 12/08/23 Still painful despite injection 1 month ago. I educated him about this condition I discussed operative and non-operative treatment options, including a long discussion about injections & activity modification The patient decided to not proceed with a right wrist injection today, as his pain was tolerable, and he denies any pain at rest in his right wrist. He does have pain in his left wrist at rest. He will continue to wear his bilateral volar wrist braces with daily activities, when needed. I discussed activity modification, he should limit or avoid any heavy gripping or lifting activities which cause him pain. He says he will discuss with his job concerning his work duties going forward, and try to modify his duties to minimize any heavy lifting. He will follow up in 3 months to discuss a possible repeat injection for his left wrist. This should be a 30 minute appointment He is happy with the current plan Please note that greater than 30 minutes was spent with this patient going over the history, evaluating the patient and radiographs, formulating possible treatment options, discussing them with the patient, and documenting the visit. Scribed for Ellie Majano MD by Vijay Perez, medical lab director, on 01/12/24 at 10:35 AM, EST. Orders: Orders FL guided needle placement Today M19.131 - Post-traumatic osteoarthritis, right wrist, M19.132 - Post-traumatic osteoarthritis, left wrist Coding Level of Care Code Est Pt Level 4 (49201) Diagnoses Scapholunate advanced collapse of right wrist M19.131 Scapholunate advanced collapse of left wrist M19.132 Seropositive rheumatoid arthritis M05.9 Long-term use of immunosuppressant medication Z79.899
== END 2024-01-12 10:56 | disposition home or self-care (01) ==
PROVIDERS: PCP Internal Medicine; Visit Provider Orthopaedic Surgery
DX: M19.131 Post-traumatic osteoarthritis, right wrist (principal); M19.132 Post-traumatic osteoarthritis, left wrist; M05.9 Rheumatoid arthritis with rheumatoid factor, unspecified; Z79.899 Other long term (current) drug therapy
CPT/HCPCS: 99214

== ENCOUNTER 2024-03-17 09:06 | Outpatient (REF) | payer OTHER, MEDICARE, SELFPAY ==
[2024-03-17 09:23] LABS: MANUAL DIFF FLAG NO
[2024-03-17 11:04] LABS: Basophils Percent Auto 0.3 % (0-2); Eosinophils Absolute Auto 0.1 X10*3/uL (0.0-0.4); Eosinophils Percent Auto 1.3 % (0-4); Hematocrit 47.3 % (42.0-52.0); Hemoglobin 15.7 g/dl (14.0-18.0); Imm Gran Abs Auto 0.01 X10*3/uL (0.00-0.03); Imm Gran Pct Auto 0.2 % (0.0-0.4); Lymphocytes Percent Auto 32.6 % (20-40); Mean Corpuscular HGB Conc 33.2 g/dl (31.0-36.0); Mean Corpuscular Hemoglobin 31.1 pg (27.0-33.0); Mean Corpuscular Volume 93.7 fL (80.0-98.0); Mean Platelet Volume 9.7 fL (9.4-12.4); Monocytes Absolute Auto 0.6 X10*3/uL (0.1-1.2); Monocytes Percent Auto 10.5 % (2-11); Neutrophils Absolute Auto 3.3 x10*3/uL (2.0-8.3); Neutrophils Percent Auto 55.1 % (45-73); Platelet Count 227 X10*3/uL (160-400); Red Blood Count 5.05 X10*6/uL (4.60-5.80); Red Cell Distribution Width 14.2 % (11.0-16.0); White Blood Count 6.1 X10*3/uL (4.8-10.8)
[2024-03-17 11:39] LABS: Alanine Aminotransferase 31 U/L (0-40); Albumin Level 4.2 g/dL (3.5-5.0); Alkaline Phosphatase 100 U/L (39-117); Anion Gap 12 (12-20); Aspartate Amino Transferase 27 U/L (5-37); Bilirubin Total 0.5 mg/dL (0.0-1.0); Blood Urea Nitrogen 18 mg/dL (9-16); Calcium 9.8 mg/dL (8.4-10.2); Carbon Dioxide 28 mmol/L (22-29); Chloride 102 mmol/L (96-108); Estimated Glomerular Filt Rate > 60; Glucose Random 122 mg/dL (60-115); Potassium 4.1 mmol/L (3.3-5.1); Sodium 138 mmol/L (135-145); Total Protein 7.5 g/dL (6.5-8.0)
[2024-03-17 14:12] LABS: Erythrocyte Sedimentation Rate 4 MM/HR (0-15)
== END 2024-03-17 09:07 | disposition home or self-care (01) ==
LOC: HO.LAB 09:06
PROVIDERS: PCP Internal Medicine; Visit Provider Student in an Organized Health Care Education/Training Program
DX: M05.9 Rheumatoid arthritis with rheumatoid factor, unspecified (principal)
CPT/HCPCS: 36415; 80053; 85025; 85652; 86140

== ENCOUNTER 2024-03-21 09:12 | Outpatient (AMB) | payer OTHER, MEDICARE, SELFPAY ==
[2024-03-21 09:14] VITALS: BP 120/72; PULSE 84; O2SAT 96; BMI 29.1
--- NOTE | 2024-03-21 09:14 | A.OFFVIS_ITS ---
Vital Signs 03/21/24 09:14 Height 5 ft 10 in Weight 202 lb 13.204 oz BMI 29.1 BP 120/72 Blood Pressure Location Lt brachial Position Sitting Pulse 84 Pulse Source Pulse Oximeter Pulse Oximetry (%) 96 Oxygen Delivery Method Room Air Intake Visit Reasons: RA Intake Note: Patient is here for follow up on RA, and seen Dr. Vasquez for many years, last seen by Veronica on 11/11/23, and lab review today. Allergies NUTS Allergy (Intermediate, Uncoded 03/21/24 09:18) ITCHY THROAT STRAWBERRY Allergy (Intermediate, Uncoded 03/21/24 09:18) ITCHY THROAT Medication List - Last Reconciled 03/21/24 by Jade Rubio MD albuterol sulfate 90 mcg/actuation (ProAir HFA) 2 puffs inhalation Q6H PRN finasteride 5 mg PO DAILY folic acid 1 mg PO DAILY Humira(CF) Pen (adalimumab) 40 mg (0.4 mL) subcut Q2W NS hydrochlorothiazide 25 mg PO DAILY lisinopril 20 mg PO DAILY metformin ER 500 mg PO BID methotrexate sodium 15 mg (6 x 2.5 mg) PO QWEEK 90 days sulfasalazine 2 grams (4 x 500 mg) PO DAILY 90 days tadalafil 5 mg PO DAILY HPI Comments Details: Patient is a 68-year-old male with seropositive nonerosive rheumatoid arthritis and secondary wrist osteoarthritis who presents for follow-up. Interval History: Last seen 11/11/2023 with Veronica Gamboa. Had recently started Humira due to disease in not in remission. Reported improvement in his pain but continued to have wrist pain. Methotrexate was restarted along with sulfasalazine continued. Today patient reports that he is overall doing well. Still having pain in the lateral aspect of his bilateral wrists. Has some morning stiffness lasting 20- 60 minutes. Because of his wrist pain he rates his pain over the past month an 8/10 (sometimes a 3 sometimes at 10 but more 10s and threes.) No medication side effects. Rheumatologic History: Onset mid-2007; pos RF, MARCO. CCP Ab. 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 Screening examination for infectious disease BPH associated with nocturia Long-term use of immunosuppressant medication Hypertension Type II diabetes mellitus with nephropathy Seropositive rheumatoid arthritis Social History (Updated 12/08/23 @ 11:28 by TOMER Cardenas) Household Members: Spouse Housing: House Are you a primary dialysis patient care technician to a significant other at home: No Do you presently have visiting nurse or other home services: No 75 years or older and lives alone: No Alcohol intake: never Patient Tobacco Use Status: Former Tobacco user Years Smoked: 12-13 years ago e-Cigarette/Vaping Use: Never Used service: No Current occupational status: employed 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 Denies joint swelling, muscle weakness, bone pain All other systems reviewed and are unremarkable except noted above Physical Exam Vital Signs: Last Vital Signs Pulse 84 03/21/24 09:14 BP 120/72 03/21/24 09:14 Pulse Ox 96 03/21/24 09:14 Oxygen Delivery Method Room Air 03/21/24 09:14 BMI result Body Mass Index 29.1 Const Other: Physical Examination Patient well appearing and in no apparent painful distress Able to rise from chair without support. ?Gait normal. Constitutional: ?Mucous membranes pink and moist patient alert and cooperative HEENT: ?Conjunctiva and sclera clear. ?Pupils equal round and reactive to light. ?No lymphadenopathy. ?Normal dentition. Resp: ?Normal respiratory effort and able to speak in complete sentences. ?Clear to auscultation bilaterally. ?No crackles, rales, rhonchi, wheezes heard. Cards: ?Regular rate and rhythm. ?S1 and S2 heard no murmurs. ?Radial pulses intact bilaterally MSK: ?No deformity, swelling, abnormalities noted to bilateral hands. ?No evidence of synovitis. ?Has pain to palpation of the lateral radiocarpal joint without any pain to palpation of the wrist joint proper. Results Reviewed Results Reviewed: Right and left hand x-rays 04/05/2023 reviewed. Noting some mild carpal crowding especially around the radial carpal joint. Some osteophytes and no obvious erosions. No erosions noted to the MCPs or PIPs. Mild periarticular osteopenia. (my read) Laboratory Tests 10/25/23 03/17/24 09:10 09:22 WBC 6.0 6.1 RBC 4.98 5.05 Hgb 14.7 15.7 Plt Count 175 227 D ESR 3 4 Sodium 140 138 Potassium 4.1 4.1 Chloride 103 102 Carbon Dioxide 28 28 BUN 19 H 18 H Creatinine 0.86 0.92 Calcium 9.6 9.8 Total Bilirubin 0.6 0.5 AST 23 27 ALT 23 31 Alkaline Phosphatase 92 100 C-Reactive Protein 0.22 0.10 Assessment & Plan Assessment & Plan (1) Seropositive rheumatoid arthritis: Comment: Onset mid-2007; pos RF, MARCO. CCP Ab. sulfasalazine started 2008 Methotrexate added 12/29; ran out of methtrexate November 2021; methotrexate restarted 03/2022 Code(s): M05.9 - Rheumatoid arthritis with rheumatoid factor, unspecified Category: Medical Plan: #Seropositive nonerosive rheumatoid arthritis With respect to his rheumatoid arthritis I believe the patient is currently in remission. His patient global is affected by the pain to his radiocarpal joint. Which show evidence of osteoarthritis on x-rays. We will continue Humira, methotrexate and sulfasalazine for now. States that when he tries to stop the sulfasalazine he gets flares but again it is in his wrist. (2) Osteoarthritis of both wrists: Code(s): M19.031 - Primary osteoarthritis, right wrist; M19.032 - Primary osteoarthritis, left wrist Category: Medical Qualifiers: Osteoarthritis type: other secondary Qualified Code(s): M19.231 - Secondary osteoarthritis, right wrist; M19.232 - Secondary osteoarthritis, left wrist Plan: #Secondary OA to wrists/RC joints Patient has secondary rheumatoid arthritis to his bilateral radiocarpal joints. I do believe that this is the main source of his pain. He has had a wrist injection in the past but I do not think a wrist injection will help I think he needs a direct radiocarpal injection. This would need to be done under ultrasound guidance given the presence of the radial artery and other vasculature in the area which could impede this being done landmarks guided. We will attempt to schedule time in the ultrasound lab in the hospital to be able to perform this procedure. (3) Methotrexate, assisted, current use: Code(s): Z79.631 - extermination inspector (current) use of antimetabolite agent Category: Medical Plan: #Long-term Current Use of Methotrexate Discussed with patient the benefits and risks of methotrexate for managing their rheumatic condition Benefits include reduced pain, reduced mortality, maintenance of remission and reduction of flares Risks include oral ulcers, photosensitivity, hepatotoxicity, hematologic toxicity, pneumonitis, flu-like symptoms (especially day after administration), nodulosis, lymphomas ? Limit alcohol and avoid Bactrim ? Monitoring: ?CBC, BMP, LFTs, hepatitis serologies as needed (4) Adalimumab (Humira) long-term use: Code(s): Z79.620 - extermination inspector (current) use of immunosuppressive biologic Category: Medical Plan: #Long-term Use of TNF Inhibitors: Humira Discussed with the patient the benefits and risks of TNF inhibitors for the management of the rheumatic condition Benefits include reduce pain, maintenance of remission and reduction of flares as well as ?progression of the disease Risks include injection sites/infusion reactions, serious infections (such as bacterial infections, opportunistic infections), malignancy, delaminating syndromes, autoimmune phenomena, CHF exacerbations, palmar plantar psoriasis and cytopenias Recommended rotating injection sites, and holding medication during and for up to 1 week after resolution of a febrile illness or open skin wound (5) On sulfasalazine therapy: Code(s): Z79.899 - Other buttermaker helper (current) drug therapy Category: Medical Plan: #Long-term Use of Sulphasalazine Discussed with patient the risks and benefits of sulfasalazine in the management of the rheumatic condition Benefits include: - Reduced pain, reduce mortality, maintenance of remission then reduction of flares Risks include: - GI upset, hemolysis (especially if G6PD deficiency), eosinophilia, headache, dizziness, rash, elevated LFTs Plan I spent 35 minutes reviewing the record and labs, seeing the patient, discussing the treatment plan and documenting in the medical record Medications: Changed From sulfasalazine 2 grams (4 x 500 mg) PO DAILY 30 days 120 tabs 0RF M05.9 - Rheumatoid arthritis with rheumatoid factor, unspecified To sulfasalazine 2 grams (4 x 500 mg) PO DAILY 90 days 360 tabs 1RF M05.9 - Rheumatoid arthritis with rheumatoid factor, unspecified From methotrexate sodium 15 mg (6 x 2.5 mg) PO QWEEK 77 tabs 1RF M05.9 - Rheumatoid arthritis with rheumatoid factor, unspecified To methotrexate sodium 15 mg (6 x 2.5 mg) PO QWEEK 90 days 78 tabs 1RF M05.9 - Rheumatoid arthritis with rheumatoid factor, unspecified Refilled folic acid 1 mg PO DAILY 90 tabs 1RF M05.9 - Rheumatoid arthritis with rheumatoid factor, unspecified Coding Level of Care Code Est Pt Level 4 (37800) Complex EM visit Add On G2211 Diagnoses Seropositive rheumatoid arthritis M05.9 Other secondary osteoarthritis of both wrists M19.231; M19.232 Osteoarthritis type: other secondary Methotrexate, buttermaker helper, current use Z79.631 Adalimumab (Humira) long-term use Z79.620 On sulfasalazine therapy Z79.899
== END 2024-03-21 09:54 | disposition home or self-care (01) ==
PROVIDERS: PCP Internal Medicine; Visit Provider Student in an Organized Health Care Education/Training Program
DX: M05.79 Rheumatoid arthritis with rheumatoid factor of multiple sites without organ or systems involvement (principal); M19.231 Secondary osteoarthritis, right wrist; M19.232 Secondary osteoarthritis, left wrist; Z79.631 Long term (current) use of antimetabolite agent; Z79.620 Long term (current) use of immunosuppressive biologic; Z79.899 Other long term (current) drug therapy
CPT/HCPCS: 99214

== ENCOUNTER → 2024-03-21 09:12 | Outpatient (BNVA) | payer OTHER, MEDICARE, SELFPAY | PROVIDERS: PCP Internal Medicine; Visit Provider Student in an Organized Health Care Education/Training Program ==

== ENCOUNTER 2024-04-12 08:08 | Outpatient (REF) | payer OTHER, MEDICARE, SELFPAY ==
[2024-04-12] MEDS: Lidocaine HCl 2 % 20 ML VIAL 5 ML SUBCUT (09:10)
[2024-04-12] MEDS: Triamcinolone Acetonide 40 MG/ML VIAL INTRAARTIC (09:11)
--- NOTE | 2024-04-12 11:25 | PM.PROC ---
Brief Operative Note Date of procedure: 04/12/24 Pre-op diagnosis: Seropositive RA Post-op diagnosis: same Procedure: Date: 04/12/2024 Study Type: Limited Ultrasound with Guidance of needle placement Indication: Pain in wrist joint Study Site: Right and Left Wrist Equipment: Findings: ? Left Wrist. Orthogonal views of the dorsal left wrist were obtained. The extensor tendon was intact without breaks or tears. The capitate had a erosion noted in the dorsal median longitudinal view which was confirmed in the dorsal transverse distal review. Grade 1-2 synovial hypertrophy noted to the radiocarpal joint. Right wrist. Orthogonal views of the dorsal right wrists were obtained The extensor tendon was intact without evidence of breaks or tears Procedure: ? After obtaining informed consent for an ultrasound-guided aspiration and glucocorticoid injection of the right and left wrist, the area of maximal tenderness to palpation was identified by the patient and this area was then imaged with ultrasound and revealed Doppler activity especially on the right wrist. The dorsal wrist was sterilely prepped with chlorhexidine and anesthetized with lidocaine spray. ?A 22 gauge 1.5 in needle was advanced into the synovial cavity under direct ultrasound visualization using in plane technique. ?20 mg of triamcinolone was injected through the same needle for each wrist. ?The procedure was well tolerated. Impressions: ? Inflammatory arthritis involving the intercarpal joints. With synovial hypertrophy of the radiocarpal joints with evidence of erosions to the capitate on the left wrist joint. No specific findings to suggest crystal related arthritis Successful injection of the right and left intercarpal joints of the wrist under ultrasound guidance. Anesthesia: local Pathology: none sent Condition: stable Disposition: other
== END 2024-04-12 08:09 | disposition home or self-care (01) ==
LOC: HO.US 08:08
PROVIDERS: PCP Internal Medicine; Visit Provider Student in an Organized Health Care Education/Training Program
DX: M19.231 Secondary osteoarthritis, right wrist (principal); M19.232 Secondary osteoarthritis, left wrist
CPT/HCPCS: 20526; 20606; 76942; J2003; J3301

== ENCOUNTER → 2024-04-12 08:08 | Outpatient (BNV) | payer OTHER, MEDICARE, SELFPAY | PROVIDERS: PCP Internal Medicine; Visit Provider Student in an Organized Health Care Education/Training Program | DX: M25.531 Pain in right wrist (principal); M25.532 Pain in left wrist | CPT/HCPCS: 76942 ==

== ENCOUNTER 2024-06-20 08:03 | Outpatient (AMB) | payer OTHER, MEDICARE, SELFPAY ==
--- NOTE | 2024-06-20 08:04 | MHC.OFFVIS ---
Vital Signs 06/20/24 08:07 Height 5 ft 10 in Weight 201 lb 8.04 oz BMI 28.9 BP 115/80 Blood Pressure Location Lt brachial Position Sitting Pulse 82 Pulse Source Pulse Oximeter Pulse Oximetry (%) 98 Oxygen Delivery Method Room Air Intake Visit Reasons: RA Intake Note: Patient presents for RA. Allergies NUTS Allergy (Intermediate, Uncoded 03/21/24 09:18) ITCHY THROAT STRAWBERRY Allergy (Intermediate, Uncoded 03/21/24 09:18) ITCHY THROAT Medication List - Last Reconciled 06/20/24 by Jade Rubio MD albuterol sulfate 90 mcg/actuation (ProAir HFA) 2 puffs inhalation Q6H PRN finasteride 5 mg PO DAILY folic acid 1 mg PO DAILY Humira(CF) Pen (adalimumab) 40 mg (0.4 mL) subcut Q2W NS hydrochlorothiazide 25 mg PO DAILY lisinopril 20 mg PO DAILY metformin ER 500 mg PO BID methotrexate sodium 15 mg (6 x 2.5 mg) PO QWEEK 90 days sulfasalazine 2,000 mg (4 x 500 mg) PO DAILY tadalafil 5 mg PO DAILY HPI Comments Details: Patient is a 68-year-old male with seropositive nonerosive rheumatoid arthritis and secondary wrist osteoarthritis who presents for follow-up. Interval History: Last seen 03/21/24 with me. At that time he noted overall improvement in his joint pain after starting the Humira but wrist pain persisted. Exam at that time was consistent with remission. His pain was attributed to OA and he received steroid injection 04/12/24 Today Patient reports improvement in his wrist pain post steroid injection. But notes he had a faulty Humira pen and all the dose wasted for that week. After that he started noticing the wrist pain again. But it is overall better since the last visit Rheumatologic History: Onset mid-2007; pos RF, MARCO. CCP Ab. sulfasalazine started 2008 - Stopped 05/2024 Methotrexate added 12/29; ran out of methtrexate November 2021; methotrexate restarted 03/2022 Humira started 11/2023 Current Rheum Medications: Humira 40mg SC every other week Methotrexate 15mg weekly Folic acid 1mg daily [facility] Medical History (Updated 06/20/24 @ 08:25 by Jade Rubio MD) Adalimumab (Humira) long-term use Methotrexate, lobsterman, current use Low grade B cell lymphoproliferative disorder Osteoarthritis of both wrists Screening examination for infectious disease BPH associated with nocturia Hypertension Type II diabetes mellitus with nephropathy Seropositive rheumatoid arthritis Social History Household Members: Spouse Housing: House Are you a primary animal care service worker to a significant other at home: No Do you presently have visiting nurse or other home services: No 75 years or older and lives alone: No Alcohol intake: never Patient Tobacco Use Status: Former Tobacco user Years Smoked: 12-13 years ago e-Cigarette/Vaping Use: Never Used service: No Current occupational status: employed 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 Review of Systems Const Details: Review of Systems Constitutional: Denies fever, chills, weight loss ENT: Denies vision changes, eye pain or eye redness, dental caries, dry mouth GI: Denies nausea, vomiting, diarrhea, abdominal pain, change in BM Pulm: Denies SOB, CHAMPION, hemoptysis, wheezing Cards: Denies chest pain, palpitations Skin: Denies Raynaud's, rash, nail changes, photosensitivity, SOFTWARE TEST ENGINEER: Denies headaches, weakness, paresthesias, recurrent falls MSK: as per HPI All other systems reviewed and are unremarkable except noted above Physical Exam Vital Signs: Last Vital Signs Pulse 82 06/20/24 08:07 BP 115/80 06/20/24 08:07 Pulse Ox 98 06/20/24 08:07 Oxygen Delivery Method Room Air 06/20/24 08:07 BMI result Body Mass Index 28.9 Physical Examination CONSTITUITIONAL Patient alert and cooperative. Well appearing and in no apparent painful distress HEENT Conjunctiva and sclera clear. ?Pupils equal round and reactive to light. ?No lymphadenopathy. ? CHEST/RESPIRATORY SYSTEM Normal respiratory effort and able to speak in complete sentences. ?Clear to auscultation bilaterally. ?No crackles, rales, rhonchi, wheezes heard. CARDIAC SYSTEM Regular rate and rhythm. ?S1 and S2 heard no murmurs. 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 No deformities noted. ?No synovitis noted to the MCPs, PIPs or DIPs. ?No tenderness to palpation of these joints. Wrists: ?Full range of motion at the wrists without pain. ?No tenderness to palpation or synovitis noted to the wrists. There is some synovial hypertrophy as evidenced by increased tissue swelling over the radiocarpal joints of bilateral wrists on the dorsal surface Elbows: Full range of motion without pain. No tenderness, weakness, swelling, increased warmth or erythema. Shoulders: Full range of motion without pain. No tenderness, weakness, swelling, increased warmth or erythema. Hips: Full range of motion without pain. Hip bursa: No tenderness to palpation Knees: ?Full range of motion. ?No tenderness, swelling, increased warmth or erythema.?No effusion or crepitations Ankles: Full range of motion. ?No tenderness, swelling, increased warmth or erythema.? Feet: ?Negative squeeze test. ?No tenderness to palpation or swelling of the MTPs. Tender points:?No tenderness to palpation of the bilateral trapezius, supraspinatus, greater trochanters, anterior costochondral junctions, bilateral gluteal areas, bilateral suboccipital muscle insertions SKIN Skin intact without rashes. Results Reviewed Results Reviewed: Laboratory Tests 07/27/23 10/25/23 03/17/24 09:19 09:10 09:22 WBC 6.1 RBC 5.05 Hgb 15.7 Hct 47.3 Plt Count 227 D ESR 3 4 Sodium 138 Potassium 4.1 Chloride 102 Carbon Dioxide 28 Anion Gap 12 BUN 18 H Creatinine 0.92 AST 27 ALT 31 C-Reactive Protein 0.10 Hepatitis A IgM Ab Nonreactive Hep Bs Antigen Negative Hep Bs Antibody NONREACTIVE Hep B Core Total Ab Nonreactive Hepatitis C Ab (EIA) Nonreactive TB Test (T-Spot) Com Negative TB Test Nil Control Passed Assessment & Plan Assessment & Plan (1) Seropositive rheumatoid arthritis: Comment: Onset mid-2007; pos RF, MARCO. CCP Ab. sulfasalazine started 2008 Methotrexate added 12/29; ran out of methtrexate November 2021; methotrexate restarted 03/2022 Code(s): M05.9 - Rheumatoid arthritis with rheumatoid factor, unspecified Category: Medical Plan: #Seropositive RA Currently in remission on Humira and Mtx Recommended that if his Humira pen misfires again to contact the office for a short course of prednisone 5mg to cover any breakthrough inflammation Plan - Humira 40mg SC every 2 weeks - MTx 15mg every week - Folic Acid 1mg daily - CBC, CMP, ESR, CRP - RTC 4-5 months (2) Osteoarthritis of both wrists: Code(s): M19.031 - Primary osteoarthritis, right wrist; M19.032 - Primary osteoarthritis, left wrist Category: Medical Qualifiers: Osteoarthritis type: other secondary Qualified Code(s): M19.231 - Secondary osteoarthritis, right wrist; M19.232 - Secondary osteoarthritis, left wrist Plan: #OA of wrists Patient with likely secondary OA to the wrists from RA s/p injection with improvement Continue conservative management including topical dicofenac gel Plan - Topical diclofenac up to 4 times a day (3) Methotrexate, half-way, current use: Code(s): Z79.631 - residential (current) use of antimetabolite agent Category: Medical Plan: #Long-term Current Use of Methotrexate Discussed with patient the benefits and risks of methotrexate for managing their rheumatic condition Benefits include reduced pain, reduced mortality, maintenance of remission and reduction of flares Risks include oral ulcers, photosensitivity, hepatotoxicity, hematologic toxicity, pneumonitis, flu-like symptoms (especially day after administration), nodulosis, lymphomas ? Limit alcohol and avoid Bactrim ? Monitoring: ?CBC, BMP, LFTs every 3-4 months and hepatitis serologies as needed (4) Adalimumab (Humira) long-term use: Code(s): Z79.620 - long term care social worker (current) use of immunosuppressive biologic Category: Medical Plan: #Long-term Use of TNF Inhibitors: Humira Discussed with the patient the benefits and risks of TNF inhibitors for the management of the rheumatic condition Benefits include reduce pain, maintenance of remission and reduction of flares as well as ?progression of the disease Risks include injection sites/infusion reactions, serious infections (such as bacterial infections, opportunistic infections), malignancy, delaminating syndromes, autoimmune phenomena, CHF exacerbations, palmar plantar psoriasis and cytopenias Recommended rotating injection sites, and holding medication during and for up to 1 week after resolution of a febrile illness or open skin wound Plan I spent 30 minutes reviewing the record and labs, taking a history, examining the patient, discussing the treatment plan and documenting in the medical record Orders: Orders Complete Blood Count Auto Diff Today M05.9 - Rheumatoid arthritis with rheumatoid factor, unspecified, M19.231 - Secondary osteoarthritis, right wrist, M19.232 - Secondary osteoarthritis, left wrist, Z79.620 - residential (current) use of immunosuppressive biologic, Z79.631 - residential (current) use of antimetabolite agent Comprehensive Met. Panel Today M05.9 - Rheumatoid arthritis with rheumatoid factor, unspecified, M19.231 - Secondary osteoarthritis, right wrist, M19.232 - Secondary osteoarthritis, left wrist, Z79.620 - long term care social worker (current) use of immunosuppressive biologic, Z79.631 - residential (current) use of antimetabolite agent C Reactive Protein Today M05.9 - Rheumatoid arthritis with rheumatoid factor, unspecified, M19.231 - Secondary osteoarthritis, right wrist, M19.232 - Secondary osteoarthritis, left wrist, Z79.620 - residential (current) use of immunosuppressive biologic, Z79.631 - residential (current) use of antimetabolite agent Erythrocyte Sedimentation Rate Today M05.9 - Rheumatoid arthritis with rheumatoid factor, unspecified, M19.231 - Secondary osteoarthritis, right wrist, M19.232 - Secondary osteoarthritis, left wrist, Z79.620 - residential (current) use of immunosuppressive biologic, Z79.631 - long term care social worker (current) use of antimetabolite agent Medications: Refilled Humira(CF) Pen (adalimumab) 40 mg (0.4 mL) subcut Q2W 2 ea 3RF NS M05.9 - Rheumatoid arthritis with rheumatoid factor, unspecified methotrexate sodium 15 mg (6 x 2.5 mg) PO QWEEK 90 days 78 tabs 1RF M05.9 - Rheumatoid arthritis with rheumatoid factor, unspecified folic acid 1 mg PO DAILY 90 tabs 1RF M05.9 - Rheumatoid arthritis with rheumatoid factor, unspecified Discontinued sulfasalazine Discontinued Reason: Doctor's Order 2,000 mg (4 x 500 mg) PO DAILY 120 tabs 2RF M05.9 - Rheumatoid arthritis with rheumatoid factor, unspecified Coding Level of Care Code Est Pt Level 4 (02813) Complex EM visit Add On G2211 Diagnoses Seropositive rheumatoid arthritis M05.9 Other secondary osteoarthritis of both wrists M19.231; M19.232 Osteoarthritis type: other secondary Methotrexate, half-way, current use Z79.631 Adalimumab (Humira) long-term use Z79.620
[2024-06-20 08:07] VITALS: BP 115/80; PULSE 82; O2SAT 98; BMI 28.9
== END 2024-06-20 08:26 | disposition home or self-care (01) ==
PROVIDERS: PCP Internal Medicine; Visit Provider Student in an Organized Health Care Education/Training Program
DX: M05.79 Rheumatoid arthritis with rheumatoid factor of multiple sites without organ or systems involvement (principal); M19.231 Secondary osteoarthritis, right wrist; M19.232 Secondary osteoarthritis, left wrist; Z79.631 Long term (current) use of antimetabolite agent; Z79.620 Long term (current) use of immunosuppressive biologic
CPT/HCPCS: 99214

== ENCOUNTER 2024-11-13 11:58 | Outpatient (REF) | payer OTHER, SELFPAY ==
[2024-11-13 12:43] LABS: MANUAL DIFF FLAG NO
--- OUTSIDE RECORDS SUMMARY | 2024-11-13 13:08 | XMS_ITS | Clinical Summary ---
Author Organization [facility] Address [address] [place] [address] Care Team Providers Care Spider Assembler Name Role Phone Unavailable Primary Care Provider Unavailabl e Source Comments PLEASE NOTE, if this patient is a minor, it may be UNLAWFUL to discuss sensitive information that is contained in these records (such as FAMILY PLANNING, MENTAL HEALTH or SUBSTANCE ABUSE) with the minor patient's parent or other person without the patient's specific authorization.[facility] Immunizations Immunization Administration Dates Next Due PFIZER COVID VACCINE, PURPLE CAP, 12+ 05/14/2021 ,10/31/2020,10/10/2020 Social History Tobacco Use Types Packs/Day Years Used Date Smoking Tobacco: Never Assessed Social Connections Answer Date Recorded Social Connections and Isolation 0 10/14/2020 Financial Resource Strain Answer Date R ecorded Financial Resource Strain 0 2020 Stress Answer Date Recorded Stress 0 10/14/2020 Physical Activity Answer Date Recorded Physical Activity 0 10/14/2020 Food Insecurity Answer Date Recorded Food 0 10/14/2020 Transportation Needs Answer Date Record ed Transportation 0 10/14/2020 Housing Stability Answer Date Recorded Housing 0 10/14/2020 Safety and Environment Answer Date Kirit rded Safety 0 10/14/2020 Utilities Answer Date Recorded Utilities 0 10/14/2020 Employment Answer Date Recorded Employment 0 10/14/2020 Sex and Gender Information Value Date Recorded Sex Assigned at Not on file Legal Sex Male 10:22 AM PDT Gender Identity Not on file Sexual Orientation Not on file Plan of Treatment Health Maintenance Due Date Last Done Comments Diabetes Screening 1955 Hepatitis C Screening 1955 Lipid Screening 1955 Tobacco Screening 1955 Hypertension Screening (#1) 1973 CT Colonography 2000 Colonoscopy 2000 Colorectal Cancer Screening 2000 FIT/gFOBT 2000 Fecal DNA 2000 Flexible Sigmoidoscopy 2000 Imm-Pneumococcal 65+ (1 of 1 - PCV) 2005 Imm-Zoster, Recombinant (1 of 2) 2005 Abdominal Aortic Aneurysm Screening 2020 Falls Prevention 2020 Imm-DTaP/Tdap/Td (2 - Td or Tdap) 09/06/2022 013, 10/31/2003 [id number] ( - season) 2024 05/14/2021, 10/31/2020, 10/10/2020 Alcohol and Drug Screen 06/14/2024 Depression Annual Screen 06/14/2024 Imm-Influenza (Season Ended) 2025, 03/21/2020, 04/03/2019, Additional history exists [facility]
[2024-11-13 13:23] LABS: Basophils Percent Auto 0.4 % (0-2); Eosinophils Absolute Auto 0.1 X10*3/uL (0.0-0.4); Eosinophils Percent Auto 1.4 % (0-4); Hematocrit 44.7 % (42.0-52.0); Hemoglobin 14.8 g/dl (14.0-18.0); Imm Gran Abs Auto 0.02 X10*3/uL (0.00-0.03); Imm Gran Pct Auto 0.3 % (0.0-0.4); Lymphocytes Absolute Auto 2.3 X10*3/uL (1.2-4.9); Lymphocytes Percent Auto 32.2 % (20-40); Mean Corpuscular HGB Conc 33.1 g/dl (31.0-36.0); Mean Corpuscular Volume 93.7 fL (80.0-98.0); Mean Platelet Volume 9.6 fL (9.4-12.4); Monocytes Absolute Auto 0.7 X10*3/uL (0.1-1.2); Monocytes Percent Auto 9.2 % (2-11); Neutrophils Percent Auto 56.5 % (45-73); Platelet Count 208 X10*3/uL (160-400); Red Blood Count 4.77 X10*6/uL (4.60-5.80); Red Cell Distribution Width 14.9 % (11.0-16.0); White Blood Count 7.2 X10*3/uL (4.8-10.8)
[2024-11-13 13:52] LABS: Alanine Aminotransferase 49 U/L (0-40); Albumin Level 4.1 g/dL (3.5-5.0); Alkaline Phosphatase 85 U/L (39-117); Anion Gap 10 (12-20); Aspartate Amino Transferase 41 U/L (5-37); Bilirubin Total 1.4 mg/dL (0.0-1.0); Blood Urea Nitrogen 19 mg/dL (9-16); C Reactive Protein < 0.10 mg/dL (< or = 0.50); Calcium 9.8 mg/dL (8.4-10.2); Carbon Dioxide 29 mmol/L (22-29); Chloride 106 mmol/L (96-108); Estimated Glomerular Filt Rate > 60; Glucose Random 147 mg/dL (60-115); Potassium 3.7 mmol/L (3.3-5.1); Sodium 141 mmol/L (135-145); Total Protein 7.3 g/dL (6.5-8.0)
[2024-11-13 14:01] LABS: Erythrocyte Sedimentation Rate 8 MM/HR (0-15)
== END 2024-11-13 11:59 | disposition home or self-care (01) ==
LOC: HO.LAB 11:58
PROVIDERS: PCP Internal Medicine; Visit Provider Student in an Organized Health Care Education/Training Program
DX: M05.9 Rheumatoid arthritis with rheumatoid factor, unspecified (principal); Z79.620 Long term (current) use of immunosuppressive biologic; Z79.631 Long term (current) use of antimetabolite agent; M19.231 Secondary osteoarthritis, right wrist; M19.232 Secondary osteoarthritis, left wrist
CPT/HCPCS: 36415; 80053; 85025; 85652; 86140

== ENCOUNTER 2024-11-22 08:35 | Outpatient (AMB) | payer OTHER, SELFPAY ==
--- NOTE | 2024-11-22 08:37 | A.OFFVIS_ITS ---
Vital Signs 11/22/24 08:46 Height 5 ft 10 in Weight 204 lb 12.951 oz BMI 29.4 BP 132/80 Blood Pressure Location Lt brachial Position Sitting Pulse 97 Pulse Source Pulse Oximeter Pulse Oximetry (%) 98 Oxygen Delivery Method Room Air Intake Visit Reasons: RA Intake Note: Patient presents for RA follow up. Allergies NUTS Allergy (Intermediate, Uncoded 03/21/24 09:18) ITCHY THROAT STRAWBERRY Allergy (Intermediate, Uncoded 03/21/24 09:18) ITCHY THROAT Medication List - Last Reconciled 11/22/24 by Jade Rubio MD albuterol sulfate 90 mcg/actuation (ProAir HFA) 2 puffs inhalation Q6H PRN finasteride 5 mg PO DAILY folic acid 1 mg PO DAILY Humira(CF) Pen (adalimumab) 40 mg (0.4 mL) subcut Q2W NS hydrochlorothiazide 25 mg PO DAILY lisinopril 20 mg PO DAILY metformin ER 500 mg PO BID methotrexate sodium 15 mg (6 x 2.5 mg) PO QWEEK 90 days prednisone 5 mg PO DAILY tadalafil 5 mg PO DAILY HPI Comments Details: Patient is a 68-year-old male with seropositive nonerosive rheumatoid arthritis and secondary wrist osteoarthritis who presents for follow-up. Interval History: Last seen 06/20/2024 with me. That time he was reporting some wrist pain after a faulty Humira pen wasted his injection for that week. But he was overall doing better post his steroid injection 04/12/2024. Since that visit he changed insurances and his new insurance had a high co-pay for his Humira. After discussion with the insurance and the patient patient opted to continue Humira. Today, Doing well Complaining of bilateral wrist pain and swelling Rheumatologic History: Onset mid-2007; pos RF, MARCO. CCP Ab. sulfasalazine started 2008 - Stopped 05/2024 Methotrexate added 12/29; ran out of methtrexate November 2021; methotrexate restarted 03/2022 Humira started 11/2023 Current Rheum Medications: Humira 40mg SC every other week Methotrexate 15mg weekly Folic acid 1mg daily PFSH Medical History (Updated 11/22/24 @ 08:45 by TOMER Avitia) Cataract, left eye Adalimumab (Humira) long-term use Methotrexate, retirement, current use Low grade B cell lymphoproliferative disorder Osteoarthritis of both wrists Screening examination for infectious disease BPH associated with nocturia Hypertension Type II diabetes mellitus with nephropathy Seropositive rheumatoid arthritis Social History Household Members: Spouse Housing: House Are you a primary prompt care rn to a significant other at home: No Do you presently have visiting nurse or other home services: No 75 years or older and lives alone: No Alcohol intake: never Patient Tobacco Use Status: Former Tobacco user Years Smoked: 12-13 years ago e-Cigarette/Vaping Use: Never Used service: No Current occupational status: employed 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 Review of Systems Const Details: Review of Systems Constitutional: Denies fever, chills, weight loss ENT: Denies vision changes, eye pain or eye redness, dental caries, dry mouth GI: Denies nausea, vomiting, diarrhea, abdominal pain, change in BM Pulm: Denies SOB, CHAMPION, hemoptysis, wheezing Cards: Denies chest pain, palpitations Skin: Denies Raynaud's, rash, nail changes, photosensitivity, FAGOT HEATER HELPER: Denies headaches, weakness, paresthesias, recurrent falls MSK: as per HPI All other systems reviewed and are unremarkable except noted above Physical Exam Vital Signs: Last Vital Signs Pulse 97 11/22/24 08:46 BP 132/80 11/22/24 08:46 Pulse Ox 98 11/22/24 08:46 Oxygen Delivery Method Room Air 11/22/24 08:46 BMI result Body Mass Index 29.4 Vital signs reviewed Physical Examination CONSTITUITIONAL Patient alert and cooperative. Well appearing and in no apparent painful distress HEENT Conjunctiva and sclera clear. ?Pupils equal round and reactive to light. ?No lymphadenopathy. ? CHEST/RESPIRATORY SYSTEM Normal respiratory effort and able to speak in complete sentences. ?Clear to auscultation bilaterally. ?No crackles, rales, rhonchi, wheezes heard. CARDIAC SYSTEM Regular rate and rhythm. ?S1 and S2 heard no murmurs. ?Radial pulses intact bilaterally MSK Hands: ?Good glass curvature gauger strength bilaterally. No deformities noted. ?No synovitis noted to the MCPs, PIPs or DIPs. ?No tenderness to palpation of these joints. Wrists: ?Full range of motion at the wrists without pain. ?Synovitis noted to bilateral wrists with swelling and TTP Elbows: Full range of motion without pain. No tenderness, weakness, swelling, increased warmth or erythema. Shoulders: Full range of motion without pain. No tenderness, weakness, swelling, increased warmth or erythema. Hips: Full range of motion without pain. Hip bursa: No tenderness to palpation Knees: ?Full range of motion. ?No tenderness, swelling, increased warmth or erythema.?No effusion or crepitations Ankles: Full range of motion. ?No tenderness, swelling, increased warmth or erythema.? Feet: ?Negative squeeze test. ?No tenderness to palpation or swelling of the MTPs. Tender points:?No tenderness to palpation of the bilateral trapezius, supraspinatus, greater trochanters, anterior costochondral junctions, bilateral gluteal areas, bilateral suboccipital muscle insertions SKIN Skin intact without rashes. Office Procedures AMB Joint Injection/Aspiration Joint Injection/Aspiration Details: #Long-term Use of Evenity Risks and benefits of romosuzumab in the management of osteoporosis Benefits include improved bone density, decreased fracture risk Risks include atypical femoral fractures, osteonecrosis of the jaw, injection site reactions, joint pain and headache Advised that patient should time any major dental work to 30 days after last injection and hold the injection for another 30 days Keep vitamin-D at least 35 ng/mL Primary Site: other (Right wrist) Prep: site was prepped using aseptic technique and ethochloride spray was applied Injected: 40 mg of, Kenalog, with 1 mL of, 1% plain lidocaine and in the joint Approach Used: other Procedure: The patient tolerated the procedure well Coding 44427 - Medium joint Procedure code (CPT) selection complete AMB Joint Injection/Aspiration Joint Injection/Aspiration Details: Procedure was explained to the patient and consent was obtained. ? The area of interest was identified and confirmed with patient. ?This was subs equently cleaned with chlorhexidine x3. ? The area was then anesthetized using ethyl chloride spray. 40 mg Kenalog with 1 cc 1% lidocaine was injected without issue. ?Minimal to no bleeding. ?Patient tolerated procedure. Primary Site: other (Left wrist) Prep: site was prepped using aseptic technique and ethochloride spray was applied Injected: 40 mg of, Kenalog, with 1 mL of and 1% plain lidocaine Approach Used: other Procedure: The patient tolerated the procedure well Coding 77822 - Medium joint Procedure code (CPT) selection complete Office Meds lidocaine (PF) 10 mg/mL (1 %) injection solution Performing Provider: Jade Rubio MD Performing Location: [facility] Administered by: Jade Rubio MD on 11/22/24 09:54 Dose Route Admin Location Dispensed Lot Number Expiration Date NDC Radiochemical Technician 1 mL Infiltration right wrist 2 mL [id number] 08/12/26 07610-394-89 [employer] Kenalog 40 mg/mL suspension for injection Performing Provider: Jade Rubio MD Performing Location: [facility] Rhe[facility] Administered by: Jade Rubio MD on 11/22/24 09:54 Dose Route Admin Location Dispensed Lot Number Expiration Date ND Radiochemical Technician 40 mg intra-articular right wrist 1 mL [id number] 09/12/25 [address]-2 [employer] lidocaine (PF) 10 mg/mL (1 %) injection solution Performing Provider: Jade Rubio MD Performing Location: [facility] Rheumatology Administered by: Jade Rubio MD on 11/22/24 09:54 Dose Route Admin Location Dispensed Lot Number Expiration Date ND Radiochemical Technician 1 mL Infiltration left wrist 2 mL [id number] 08/12/26 66084-942-71 [employer]ABI Kenalog 40 mg/mL suspension for injection Performing Provider: Jade Rubio MD Performing Location: [facility] Rheumatology Administered by: Jade Rubio MD on 11/22/24 09:54 Dose Route Admin Location Dispensed Lot Number Expiration Date [facility] Radiochemical Technician 40 mg intra-articular left wrist 1 mL [id number] 09/12/25 [address]-4 [employer] Results Reviewed Results Reviewed: Laboratory Tests 03/17/24 11/13/24 09:22 12:42 WBC 7.2 RBC 4.77 Hgb 14.8 Hct 44.7 Plt Count 208 ESR 8 Sodium 141 Potassium 3.7 Chloride 106 Carbon Dioxide 29 BUN 19 H Creatinine 0.90 Total Bilirubin 0.5 1.4 H AST 27 41 H ALT 31 49 H C-Reactive Protein < 0.10 Infectious serologies 07/27/23 09:19 Hepatitis A IgM Ab Nonreactive Hep Bs Antigen Negative Hep Bs Antibody NONREACTIVE Hep B Core Total Ab Nonreactive Hepatitis C Ab (EIA) Nonreactive TB Test (T-Spot) Com Negative Assessment & Plan Assessment & Plan (1) Seropositive rheumatoid arthritis: Comment: Onset mid-2007; pos RF, MARCO. CCP Ab. sulfasalazine started 2008 Methotrexate added 12/29; ran out of methtrexate November 2021; methotrexate restarted 03/2022 Code(s): M05.9 - Rheumatoid arthritis with rheumatoid factor, unspecified Category: Medical Plan: #Seropositive RA Patient is a 69-year-old male with seropositive rheumatoid arthritis here today for follow up. Currently in remission on Humira and Mtx. Overall is in re mission with low disease activity based on a CDAI of 4 accounting for his bilateral swollen and tender wrists joints. We will continue his current regimen Plan - Humira 40mg SC every 2 weeks - MTx 15mg every week - Folic Acid 1mg daily - RTC 4 months - Labs before visit: CBC, CMP, ESR, CRP, hepatitis panel, T spot (2) Osteoarthritis of both wrists: Code(s): M19.031 - Primary osteoarthritis, right wrist; M19.032 - Primary osteoarthritis, left wrist Category: Medical Qualifiers: Osteoarthritis type: other secondary Qualified Code(s): M19.231 - Secondary osteoarthritis, right wrist; M19.232 - Secondary osteoarthritis, left wrist Plan: #OA of wrists Patient with likely secondary OA to the wrists from RA Received injection 03/2024. Complaining of bilateral wrist pain today. Steroid injection given Plan - Topical diclofenac up to 4 times a day (3) Transaminitis: Code(s): R74.01 - Elevation of levels of liver transaminase levels Plan: #Transaminitis Patient with new transaminitis without history of EtOH use/abuse, tylenol or NSAID use His bilirubin is also elevated. He does note that he was recently treated for a UTI with antibiotics about a month and a half ago. This could be related to that. We will recheck his blood work in 3 weeks. If it remains elevated we will get a ultrasound of his liver Plan - CMP in 3 weeks - US Abd with elastography if persistently elevated (4) Methotrexate, retirement, current use: Code(s): Z79.631 - terminal make up operator (current) use of antimetabolite agent Category: Medical Plan: #Long-term Current Use of Methotrexate Discussed with patient the benefits and risks of methotrexate for managing their rheumatic condition Benefits include reduced pain, reduced mortality, maintenance of remission and reduction of flares Risks include oral ulcers, photosensitivity, hepatotoxicity, hematologic toxicity, pneumonitis, flu-like symptoms (especially day after administration), nodulosis, lymphomas ? Limit alcohol and avoid Bactrim ? Monitoring: ?CBC, BMP, LFTs every 3-4 months and hepatitis serologies as needed (5) Adalimumab (Humira) long-term use: Code(s): Z79.620 - penitentiary (current) use of immunosuppressive biologic Category: Medical Plan: #Long-term Use of TNF Inhibitors: Humira Discussed with the patient the benefits and risks of TNF inhibitors for the management of the rheumatic condition Benefits include reduce pain, maintenance of remission and reduction of flares as well as ?progression of the disease Risks include injection sites/infusion reactions, serious infections (such as bacterial infections, opportunistic infections), malignancy, delaminating syndromes, autoimmune phenomena, CHF exacerbations, palmar plantar psoriasis and cytopenias Recommended rotating injection sites, and holding medication during and for up to 1 week after resolution of a febrile illness or open skin wound Plan I spent 30 minutes reviewing the record and labs, taking a history, examining the patient, discussing the treatment plan and documenting in the medical record Orders: Orders AMB Joint Injection/Aspiration Today M19.231 - Secondary osteoarthritis, right wrist, M19.232 - Secondary osteoarthritis, left wrist AMB Joint Injection/Aspiration Today M19.231 - Secondary osteoarthritis, right wrist, M19.232 - Secondary osteoarthritis, left wrist Medications: New lidocaine (PF) 1 mL Infiltration ONCE 2 mL 0RF M19.231 - Secondary osteoarthritis, right wrist, M19.232 - Secondary osteoarthritis, left wrist Kenalog (triamcinolone acetonide) 40 mg intra-articular ONCE 1 mL 0RF NS M19.231 - Secondary osteoarthritis, right wrist, M19.232 - Secondary osteoarthritis, left wrist lidocaine (PF) 1 mL Infiltration ONCE 2 mL 0RF M19.231 - Secondary osteoarthritis, right wrist, M19.232 - Secondary osteoarthritis, left wrist Kenalog (triamcinolone acetonide) 40 mg intra-articular ONCE 1 mL 0RF NS M19.231 - Secondary osteoarthritis, right wrist, M19.232 - Secondary osteoarthritis, left wrist Coding Level of Care Code Est Pt Level 4 (12313) Complex EM visit Add On G2211 Diagnoses Seropositive rheumatoid arthritis M05.9 Other secondary osteoarthritis of both wrists M19.231; M19.232 Osteoarthritis type: other secondary Transaminitis R74.01 Methotrexate, terminal make up operator, current use Z79.631 Adalimumab (Humira) long-term use Z79.620 CPT Codes Coding - 00131 Medium joint: 95731 - Medium joint ([id number]) Coding - 98205 Medium joint: 53554 - Medium joint ([id number])
[2024-11-22 08:46] VITALS: BP 132/80; PULSE 97; O2SAT 98; BMI 29.4
--- OUTSIDE RECORDS SUMMARY | 2024-11-22 08:53 | XMS_ITS | Clinical Summary ---
Author Organization [facility] Address [address] [place] [address] Care Team Providers Care Vp Integration Name Role Phone Unavailable Primary Care Provider [...] - Td or Tdap) 09/06/2022 013, 10/31/2003 [id number] ( - season) 2024 05/14/2021, 10/31/2020, 10/10/2020 Alcohol and Drug Screen 06/14/2024 Depression Annual Screen 06/14/2024 Imm-Influenza (Season Ended) 2025, 03/21/2020, 04/03/2019, Additional history exists [facility] FUN[facility]
== END 2024-11-22 09:47 | disposition home or self-care (01) ==
LOC: HO.RHE 08:35
PROVIDERS: PCP Internal Medicine; Visit Provider Student in an Organized Health Care Education/Training Program
DX: M05.79 Rheumatoid arthritis with rheumatoid factor of multiple sites without organ or systems involvement (principal); M19.231 Secondary osteoarthritis, right wrist; M19.232 Secondary osteoarthritis, left wrist; R74.01 Elevation of levels of liver transaminase levels; Z79.631 Long term (current) use of antimetabolite agent; Z79.620 Long term (current) use of immunosuppressive biologic
CPT/HCPCS: 20605; 99214

== ENCOUNTER → 2024-11-22 08:35 | Outpatient (BNVA) | payer OTHER, SELFPAY | PROVIDERS: PCP Internal Medicine; Visit Provider Student in an Organized Health Care Education/Training Program | DX: M05.9 Rheumatoid arthritis with rheumatoid factor, unspecified (principal); M19.231 Secondary osteoarthritis, right wrist; M19.232 Secondary osteoarthritis, left wrist; R74.01 Elevation of levels of liver transaminase levels; Z79.631 Long term (current) use of antimetabolite agent; Z79.620 Long term (current) use of immunosuppressive biologic; Z79.52 Long term (current) use of systemic steroids; Z79.899 Other long term (current) drug therapy | CPT/HCPCS: 20605; J3300 ==

== ENCOUNTER 2025-03-15 14:17 | Outpatient (REF) | payer MEDICARE, SELFPAY ==
[2025-03-15 14:41] LABS: MANUAL DIFF FLAG NO
[2025-03-15 15:11] LABS: Hematocrit 45.5 % (42.0-52.0); Hemoglobin 15.5 g/dl (14.0-18.0); Imm Gran Abs Auto 0.02 X10*3/uL (0.00-0.03); Imm Gran Pct Auto 0.3 % (0.0-0.4); Lymphocytes Absolute Auto 2.7 X10*3/uL (1.2-4.9); Mean Corpuscular HGB Conc 34.1 g/dl (31.0-36.0); Mean Corpuscular Hemoglobin 31.4 pg (27.0-33.0); Mean Corpuscular Volume 92.1 fL (80.0-98.0); NRBC Abs Auto 0.000 X10*3/uL (0.0-0.012); NRBC Pct Auto 0.0 /100WBC (0.0-0.2); Platelet Count 186 X10*3/uL (160-400); Red Blood Count 4.94 X10*6/uL (4.60-5.80); White Blood Count 8.0 X10*3/uL (4.8-10.8)
[2025-03-15 15:46] LABS: Alanine Aminotransferase 56 U/L (0-40); Albumin Level 4.2 g/dL (3.5-5.0); Alkaline Phosphatase 88 U/L (39-117); Anion Gap 11 (12-20); Aspartate Amino Transferase 48 U/L (5-37); Blood Urea Nitrogen 15 mg/dL (9-16); Calcium 9.6 mg/dL (8.4-10.2); Carbon Dioxide 31 mmol/L (22-29); Chloride 102 mmol/L (96-108); Estimated Glomerular Filt Rate > 60; Potassium 3.5 mmol/L (3.3-5.1); Sodium 140 mmol/L (135-145); Total Protein 7.3 g/dL (6.5-8.0)
--- OUTSIDE RECORDS SUMMARY | 2025-03-15 15:56 | XMS_ITS | Encounter Summary ---
Author Organization [facility] Address [address] [place] [address] Care Team Providers Care Investigator Narcotics Name Role Phone Shankar Montez MD Primary Care Provider Reason for Visit * Reason Onset Date Comments Clinical Outreach Questions 02/27/2025 Encounter Details Date Type Department Care Team (Late st Contact Info) Description 02/27/2025 Telephone Internal Medicine - [facility] [address] [place] [phone] Shankar Montez MD [address] [place] [id number] Social History Tobacco Use Types Packs/Day Years Used Date Smoking Tobacco: Former Cigarettes Q uit: 10/12/2009 Smokeless Tobacco: Never Alcohol Use Standard Drinks/Week Comments No 0 (1 standard drink = 0.6 oz pur e alcohol) Housing Instability Answer Date Recorde d Are you worried that in the next 2 months you may not have stable housing? No 02/02/2025 Food Access & Nutrition Answer Date Rec orded Do you have access to a vari ety of food including fruits and vegetables? Yes 02/02/2025 Access to Healthcare Answer Date Record ed Within the last 3 months, ho w many times did you visit the emergency department for your medical care? 2 10/15/2024 Health Literacy Answer Date Recorded How often do you need to hav e someone help you when you read instructions, pamphlets, or other written material from your doctor or pharmacy? Never 02/02/2025 Caregiver: How often do you need to have someone help you when you read instructions, pamphlets, or other written material from your doctor or pharmacy? Not on file 02/02/2025 Financial Risk Answer Date Recorded How hard is it for you to pa y for the very basics like food, housing, medical care, and air conditioning / heating? Not very hard 02/02/2025 Transportation Answer Date Recorded Has the lack of transportati on kept you from meetings, work, or from getting things needed for daily living? No Has the lack of transportati on kept you from medical appointments or from getting medications? No 02/02/2025 Social Isolation Answer Date Recorded How often do you feel lonely or isolated from th ose around you? Never 02/02/2025 Food Risk Answer Date Recorded Within the past 12 months we worried whether our food would run out before we got money to buy more. Never true 02/02/2025 Within the past 12 months th e food we bought just didn't last and we didn't have money to get more. Never true 02/02/2025 Dependent Care Answer Date Recorded Do you need help finding or paying for care for your loved ones. For example, director of early childhood education or elderly care for an older adult? No 02/02/2025 Education Answer Date Recorded Do you think completing more education or training, like finishing a GED, going to college, or learning a trade, would be helpful for you? No 02/02/2025 Employment and Income Answer Date Recor ded During the last four weeks, have you been actively looking for work? No 02/02/2025 Living Situation Answer Date Recorded What is your living situation? Unrecognized valu e 02/02/2025 Interpersonal Safety Answer Date Record ed Physical Abuse Unrecognized value 10/25/2024 Verbal Abuse Unrecognized value 10/25/2024 Sex and Gender Information Value Date Recorded Sex Assigned at Male 09/10/2024 12:04 PM EDT Legal Sex Male 1:43 PM EST Gender Identity Male 09/10/2024 12:04 PM EDT Sexual Orientation Straight 09/10/2024 12 :04 PM EDT documented as of this encounter Functional Status * Are you deaf or do you have serious difficulty hearing? Answer Date of Assessment Author No 09/30/2024 11:38 AM EDT Sneha Jones, CHRIS * Are you blind or do you have serious difficulty seeing, even when wearing glasses? Answer Date of Assessment Author No 09/30/2024 11:38 AM EDT Sneha Jones RN * Do you have serious difficulty walking or climbing stairs? Answer Date of Assessment Author No 09/30/2024 11:38 AM EDT Sneha Jones RN * Do you have serious difficulty dressing or bathing? Answer Date of Assessment Author No 09/30/2024 11:38 AM EDT Sneha Jones RN * Because of a physical, mental, or emotional condition, do you have serious difficulty doing errandsalone such as visiting the doctor? Answer Date of Assessment Author No 09/30/2024 11:38 AM CHICOT Sneha Jones RN documented as of this encounter Mental Status * Because of a physical, mental, or emotional condition, do you have serious difficulty concentrating, remembering, or making decisions? (5 years old or older) Answer Entry Date Author No 09/30/2024 11:38 AM EDT Sneha Jones RN documented in this encounter Progress Notes * Patricia Palomino MA - 02/27/2025 1:02 PM EDT ZOFIA 5.19.25 Insurance recommending statin, please advise if appropriate. * Nalini White - 02/27/2025 12:38 PM EDT Kelley with [employer] Calling back. She received our message with the answers to the questions she was asking. Would like a call back. Is the PCP would be open to starting the patient on a statin medication due to him being a diabetic. Please call Kelley back at: [phone] x [phone] documented in this encounter Plan of Treatment Upcoming Encounters Date Type Department Care Team (Late st Contact Info) Description 04/19/2025 8:15 AM EST Office Visit [facility] [address] [facility] [place] [phone] Shankar Montez MD [address] [place] [address] documented as of this encounter Visit Diagnoses Not on filedocumented in this encounter Additional Health Concerns Assessment Noted Time PHQ-9 Depression Total Score: 0 02/03/20 25 3:05 PM EDT documented as of this encounter Care Teams Investigator Narcotics Relationship Specialty Start Date End Date Shankar Montez MD [address] [place] [phone] PCP - General Internal Medicine 07/10/24 documented as of this encounter
--- OUTSIDE RECORDS SUMMARY | 2025-03-15 15:56 | XMS_ITS | Clinical Summary ---
Author Organization [facility] Address [address] [place] [address] Care Team Providers Care Content Checker Name Role Phone Unavailable Primary Care Provider [...] Fecal DNA 2000 Flexible Sigmoidoscopy 2000 Imm-Pneumococcal 50+ (1 of 1 - PCV) 2005 Imm-Zoster, Recombinant (1 of 2) 2005 Abdominal Aortic Aneurysm Screening 2020 Falls Prevention 2020 Imm-DTaP/Tdap/Td (2 - Td or Tdap) 09/06/2022 013, 10/31/2003 Alcohol and Drug Screen 06/14/2024 Depression Annual Screen 06/14/2024 [id number] ( season) 2025 05/14/2021, 10/31/2020, 10/10/2020 Imm-Influenza (#1) 2025 02/28/2021, 1 , 04/03/2019, Additional history exists [facility] FUND
--- OUTSIDE RECORDS SUMMARY | 2025-03-15 15:56 | XMS_ITS ---
Author Name [facility] Organization Unknown Care Team Organization Name Specialty Phone Email Start Date End Da keanu [facility] Shankar Montez Primary Care 04/21/2022 01/31/20 24
--- OUTSIDE RECORDS SUMMARY | 2025-03-15 15:56 | XMS_ITS | Encounter Summary ---
Author Organization [facility] Address [address] [place] [address] Care Team Providers Care Manager Loss Prevention Name Role Phone Shankar Montez MD Primary Care Provider [phone] Encounter Details Date Type Department Care Team (Late st Contact Info) Description 09/26/2024 Lab Requisition [facility] - Main Lab [address] [place] [phone] Sandy Gimenez MD [address] [place] [address] Benign prostatic hyperplasia with lower urinary tract symptoms Social History Tobacco Use Types Packs/Day Years Used Date Smoking Tobacco: Former Cigarettes Q uit: 10/12/2009 Smokeless Tobacco: Never Alcohol Use Standard Drinks/Week Comments No 0 (1 standard drink = 0.6 oz pur e alcohol) Interpersonal Safety Answer Date Record ed Physical Abuse Unrecognized value 09/30/2024 Verbal Abuse Unrecognized value 09/30/2024 Sex and Gender Information Value Date Recorded Sex Assigned at Male 09/10/2024 12:04 PM EDT Legal Sex Male 1:43 PM EST Gender Identity Male 09/10/2024 12:04 PM EDT Sexual Orientation Straight 09/10/2024 12 :04 PM EDT documented as of this encounter Plan of Treatment Upcoming Encounters Date Type Department Care Team (Late st Contact Info) Description 04/19/2025 8:15 AM EST Office Visit [facility] [address] [place] [phone] Shankar Montez MD [address] [place] [address] documented as of this encounter Procedures Procedure Name Priority Date/Time Associated Diagnosis Comments PROSTATE SPECIFIC ANTIGEN DIAGNOSTIC Routine 09/26/2024 9:05 AM EDT Benign prostatic hyperplasia with lower urinary tract symptoms documented in this encounter Results * Prostate specific antigen diagnostic (09/26/2024 9:05 AM EDT) PSA 2.60 0.00 - 4.00 ng/mL LAB CHEMISTRY METHOD 09/26/2024 1:26 PM EDT [facility] Blood Venous blood specimen / Unknown 09/26/2024 9:05 AM EDT 09/26/2024 12:38 PM EDT Narrative [facility] - 09/26/2024 1:26 PM EDT The Siemens Advia Centaur Chemiluminescent Immunoassay is used. Results obtained with different assay methods or kits cannot be used interchangeably. Results cannot be interpreted as absolute evidence of the presence or absence of malignant disease. Sandy Gimenez MD LAB BLOOD ORDERABLES Fin al Result [facility] [address] [place] [address], documented in this encounter Visit Diagnoses Diagnosis Benign prostatic hyperplasia with lower urinary tract symptoms documented in this encounter Additional Health Concerns Infection Onset Date Last Indicated Resolved Time Gastrointestinal Rule-Out 09/10/2024 09/10/2024 7:05 PM EDT Respiratory Rule-Out 09/30/2024 09/30/2024 025 12:55 PM EDT COVID-19 Rule-Out 09/30/2024 09/30/2024 09/30/2024 12:55 PM EDT documented as of this encounter Care Teams Manager Loss Prevention Relationship Specialty Start Date End Date Shankar Montez MD [address] [place] [id number] PCP - General Internal Medicine 07/10/24 documented as of this encounter
--- OUTSIDE RECORDS SUMMARY | 2025-03-15 15:56 | XMS_ITS | Clinical Summary ---
Author Organization [place] [address] [address] [facility] Building Address [facility] [place] [address] Phone Care Team Providers Care Integration Architect Name Role Phone Shankar Montez MD Primary Care Provider [phone] Allergies Active Allergy Reactions Criticality Noted Date Comments Ascorbic Acid 02/24/2007 [place] [facility] fresh straberrys cause throat to tighten / Plums also Nut - Unspecified Wheezing 04/23/2014 Nuts almonds Medications finasteride (PROSCAR) 5 mg tablet Take 1 tablet (5 mg total) by mouth 1 (one) time each day. Active folic acid (FOLVITE) 1 mg tablet Take 1 tablet (1,000 mcg total) by mouth 1 (one) time each day. Active tadalafiL (CIALIS) 5 mg tablet Take 1 tablet (5 mg total) by mouth 1 (one) time each day. Active methotrexate 2.5 mg tablet Take 6 Tablets by mouth once a week. 05/25/20 23 Active albuterol HFA (PROAIR HFA ; PROVENTIL HFA ; VENTOLIN HFA) 90 mcg/actuation inhaler Inhale 2 puffs by mouth every 4 (four) hours if needed for wheezing. Inhale 1-2 Puffs into the lungs every 4 hours as needed for Cough or Wheezing 6.7 g 2 07/12/19 25 Active lisinopriL (PRINIVIL,ZEST RIL) 20 mg tablet TAKE 1 TABLET BY MOUTH DAILY 90 tablet 1 10/04/19 25 Active bisacodyL (DULCOLAX) 5 mg EC tablet Take 2 tablets by mouth right before beginning bowel prep. See instructions provided by the office 2 tablet 10/12/19 25 Active polyethylene glycol (Golytely) 236-22.74-6.74 -5.86 gram solution Take 4L by mouth once for one dose. May substitue any PEG. Starting at 6PM the night before your procedure drink 1 8oz glasses at your own pace until you complete half of the gallon. Finish 2nd half of the gallon 5 hours before your procedure. 4000 mL 10/12/19 25 Active fluocinolone acetonide oiL 0.01 % drops Administer 1 drop into affected ear(s) 2 (two) times a day. 7.5 mL 10/31/19 25 Active metFORMIN XR (GLUCOPHAGE-XR ) 500 mg 24 hr tablet TAKE 1 TABLET(500 MG) BY MOUTH TWICE DAILY WITH MEALS 180 tablet 02/07/20 25 Active hydroCHLOROthi azide (HYDRODIURIL) 25 mg tablet TAKE 1 TABLET BY MOUTH DAILY 90 tablet 03/06/20 25 Active hydroCHLOROthi azide (HYDRODIURIL) 25 mg tablet TAKE 1 TABLET BY MOUTH DAILY 90 tablet 1 08/10/19 25 025 Discontinued Active Problems Problem Noted Date Diagnosed Date Sepsis ([facility] V24, [facility] V28) 09/30/2024 Cataract 02/24/2022 DM (diabetes mellitus), type 2 with peripheral vascular complications ([facility] V24, [facility] V28) 12/06/2018 DM (diabetes mellitus), type 2 with renal complications ([facility] V24, [facility] V28) 08/16/2017 Microalbuminuria 11/24/2016 Asthma 12/25/2013 BPH with obstruction/lower urinary tract symptom s 10/04/2010 ED (erectile dysfunction) 12/05/2009 Seropositive rheumatoid arth ritis ([facility] V24, [facility] V28) 08/13/2009 Overview (07/05/2024): Onset mid-2007; pos RF, MARCO. CCP Ab. sulfasalazine started 2008 Methotrexate added 12/29 Primary hypertension 01/06/2006 Encounters Date Type Department Care Team Description 03/06/2025 Telephone [facility] [address] [place] [address] [address] Shankar Montez MD 02/27/2025 [facility] [address] [place] [phone] Shankar Montez MD 02/26/2025 [facility] [address] [place] [phone] Shankar Montez MD 02/02/2025 2:30 PM EDT [facility] [address] [place] [phone] Encounter for subsequent annual wellness visit (AWV) in Medicare patient (Primary Dx) 01/25/2025 [facility]phone [facility] [address] [place] [address] Stormy Hawkins RN 01/15/2025 Telephone Internal Medicine - [address] [phone] Shankar Montez MD 12/25/2024 4:31 PM EDT - 12/25/2024 4:45 PM EDT Emergency [facility] Emergency [address] [place] [address] Acute extremity pain (Primary Dx); Right leg pain Discharge Disposition: Home or Self Care from Last 3 Months Immunizations Immunization Administration Dates Next Due Influenza Quadravalent, MDCK , 0.5ml, preservative free (Flucelvax) 6mo and older 03/21/2020,04/03/2019,04/21/2018 Influenza Quadravalent, MDCK , 0.5ml, with preservative (Flucelvax) 6mo and older 03/11/2017 Influenza trivalent, 0.5mL ( Fluad) 65yo and older 07/12/2024,05/25/2023,05/01/2022,2020 Influenza trivalent, 0.5mL, preservative free (Fluarix; FluLaval; Fluzone) ages 6mo and older (Afluria) 3 years and older 03/23/2016,02/22/2015,03/11/2010 Pneumococcal conjugate 20 va lent (Prevnar 20, PCV 20) 2mo and older 05/25/2023 Td Tetanus diptheria (Tdvax) 7yo and older 10/31/2003 Tdap Tetanus diptheria acell ular pertussis (Boostrix; Adacel) 7yo and older 09/06/2012 Surgical History Surgery Date Site/Laterality Comments TONSILLECTOMY 1961 PROCEDURE: HISTORICAL TONSILLECTOMY COLONOSCOPY 05/28/08 PROCEDURE: HISTORICAL COLONOSCOPY; COMMENT: normal; repeat in ten years CATARACT EXTRACTION W/ INTRAOCULAR LENS IMPLANT, BILATERAL Bilateral Medical History Medical History Date Comments Asthma 12/25/2013 DX:Asthma ED (erectile dysfunction) 12/05/2009 DX:ED (erectile dysfunction) Seropositive rheumatoid arth ritis ([facility] V24, [facility] V28) 08/13/2009 DX:Seropositive rheumatoid arthritis (HCC); COMMENT: Onset mid-2007; pos RF, MARCO. CCP Ab. sulfasalazine started 2008 DM (diabetes mellitus), type 2 with renal complications ([facility] V24, [facility] V28) 08/16/2017 DX:DM (diabetes mellitus), t ype 2 with renal complications ([facility]) Microalbuminuria 11/24/2016 DX:Microalbumin uria DM (diabetes mellitus), type 2 with peripheral vascular complications ([facility] V24, [facility] V28) 12/06/2018 DX:DM (diabetes mellitus), type 2 with peripheral vascular complications ([facility]) BPH with obstruction/lower u rinary tract symptoms 10/04/2010 DX:BPH with obstruction/lowe r urinary tract symptoms Hypertension 01/06/2006 DX:Hypertension Cataract 02/24/2022 DX:Cataract Family History Medical History Relation Name Comments No Known Problems Brother 1 No Known Problems Brother 2 Diabetes Brother 3 Arnie mentally challe nged Diabetes Daughter Diabetes Father HTN Hypertension Father Arthritis Maternal Grandmother Diabetes Mother Liver cancer Mother Diabetes Son Relation Name Status Comments Brother 1 Alive Brother 2 Alive Brother 3 Arnie Alive Daughter Alive Father Maternal Grandmother Mother Sister Alive Son Alive Social History Tobacco Use Types Packs/Day Years Used Date Smoking Tobacco: Former Cigarettes Q uit: 10/12/2009 Smokeless Tobacco: Never Tobacco Cessation:Counseling Given: Not Answered Alcohol Use Standard Drinks/Week Comments No 0 [...] care for your loved ones. For example, children's attendant or elderly care for an older adult? [...] Orientation Straight 09/10/2024 12 :04 PM EDT Obstetrics History Last Filed Vital Signs Vital Sign Reading Time Taken Comments Blood Pressure 115/71 12/25/2024 1:01 PM EDT Pulse 78 12/25/2024 1:01 PM EDT Temperature 36.7 C (98 F) 12/25/2024 1:57 PM EDT Respiratory Rate 20 12/25/2024 1:01 PM EDT Oxygen Saturation 98% 12/25/2024 1:01 PM EDT Inhaled Oxygen Concentration - - Weight 90.7 kg (200 lb) 12/25/2024 1:01 PM EDT Height 175.3 cm (5' 9 ) 12/25/2024 1:01 PM EDT Body Mass Index 29.53 12/25/2024 1:01 PM EDT Plan of Treatment Upcoming Encounters Date Type Department Care Team (Late st Contact Info) Description 04/19/2025 8:15 AM EST Office Visit Internal Medicine - [address] [phone] Shankar Montez MD [address] [place] [address] Health Maintenance Due Date Last Done Comments Diabetes: Annual Foot Exam 1965 RSV Immunization Adult Patients (1 - Risk 60-74 years 1-dose series) 2015 Zoster Vaccines (2 of 2) 01/03/2022 11/08/2021 Abdominal Aortic Aneurysm (AAA) Screen 05/12/2022 Colorectal Cancer Screening: FIT-DNA (Cologuard) 05/12/2022 DTaP,Tdap,and Td Vaccines (3 - Td or Tdap) 09/06/2022 09/06/2012, 10/31/2003 COVID-19 Vaccine (4 - 2025-26 season) 2025 05/14/2021, 10/31/2020, 10/10/2020 Influenza Vaccine (#1) 2025 , 05/25/2023, 05/01/2022, Additional history exists Diabetes: Blood Sugar Control Test (HGBA1C) 04/29/2025 10/27/2024, 07/12/2024, 12/22/2023, Additional history exists Diabetes: Annual Retina Eye Exam 08/14/2025 08/14/2024 Falls Risk Assessment 10/25/2025 10/25/2024 Diabetes: Annual Urine Albumin-Creatinine Ratio (uACR) 10/27/2025 10/27/2024, 12/22/2023 Diabetes: Annual GFR (Glomerular Filtration Rate) 10/27/2025 10/27/2024, 10/02/2024, 10/01/2024, Additional history exists Hypertension/CHF/CAD Annual BMP Blood Test 10/27/2025 10/27/2024, 10/02/2024, 10/01/2024, Additional history exists Medicare Annual Wellness Visit 02/02/2026 02/02/2025 Social Influencers of Health Screening 02/02/2026 02/02/2025 Cholesterol Screening (Lipid Panel) 10/27/2029 10/27/2024, 07/12/2024, 12/22/2023, Additional history exists Hepatitis C Screening Completed 01/06/2018 Pneumococcal Vaccine: 50+ Years Completed 05/25/2023 Colorectal Cancer Screening: Colonoscopy Discontinued 10/25/2024 Depression Screening Completed 02/02/2025, 12/02/19 24 HIB Vaccines Aged Out No longer eligi ble based on patient's age to complete this topic HPV Vaccines Aged Out No longer eligi ble based on patient's age to complete this topic Hepatitis A Vaccines Aged Out No long er eligible based on patient's age to complete this topic Hepatitis B Vaccines Aged Out No long er eligible based on patient's age to complete this topic IPV Vaccines Aged Out No longer eligi ble based on patient's age to complete this topic MMR Vaccines Aged Out No longer eligi ble based on patient's age to complete this topic Meningococcal ACWY Vaccine Aged Out N o longer eligible based on patient's age to complete this topic Meningococcal B Vaccine Aged Out No l onger eligible based on patient's age to complete this topic RSV Immunization Patients Under 20 months Aged Out No longer eligible based on patient's age to complete this topic Varicella Vaccines Aged Out No longer eligible based on patient's age to complete this topic Procedures Procedure Name Priority Date/Time Associated Diagnosis Comments VAS US DUPLEX LOWER EXT VENOUS RIGHT STAT 12/25/2024 3:42 PM EDT Acute extremity pain MICROALBUMIN CREATININE URINE RATIO Routine 10/27/2024 11:12 AM EDT Type 2 diabetes mellitus with other diabetic kidney complication (CMS/HCC V24, CMS/HCC V28) COMPREHENSIVE METABOLIC PANEL Routine 10/27/2024 11:12 AM EDT Type 2 diabetes mellitus with other diabetic kidney complication, without long-term current use of insulin (CMS/HCC V24, CMS/HCC V28) HEMOGLOBIN A1C Routine 10/27/2024 11:12 AM EDT Type 2 diabetes mellitus with other diabetic kidney complication, without long-term current use of insulin (CMS/HCC V24, CMS/HCC V28) LIPID PANEL WITH REFLEX TO DIRECT LDL Routine 10/27/2024 11:12 AM EDT Type 2 diabetes mellitus with other diabetic kidney complication, without long-term current use of insulin (CMS/HCC V24, CMS/HCC V28) COLONOSCOPY Routine 10/25/2024 12:35 PM EDT Colon cancer screening EXTERNAL DIABETIC RETINA EYE EXAM 08/14/2024 HM DEPRESSION SCREENING Routine 12/02/2023 HEPATITIS C SCREENING Routine 01/06/2018 from Last 3 Months or Most Recently Relevant to Health Maintenance Results * Vascular US Duplex Lower Extremity Venous Right (12/25/2024 3:42 PM EDT) Anatomical Region Laterality Modality Vascular, Abdomen Ultrasound 12/25/2024 4:22 PM EDT Impressions 12/25/2024 4:23 PM EDT Impression: No evidence of deep vein thrombosis in the right femoral-popliteal venous segment. Telerad BRADEN ([id number]) -------- FINAL REPORT -------- Dictated By: Keiko Schulte Dictated Date: 12/25/2024 16:22 ET Assigned Physician: Keiko Schulte Reviewed and Electronically Signed By: Keiko Schulte Signed Date: 12/25/2024 16:23 ET Workstation ID: [id number] Transcribed By: Self Edit Transcribed Date: 12/25/2024 16:22 ET Narrative 12/25/2024 4:23 PM EDT History: Right lower extremity swelling. Findings: Duplex and color Doppler imaging of the deep venous system of the right lower extremity was performed from the inguinal ligament to the popliteal fossa. The common femoral, femoral and popliteal veins are patent and compress completely. Normal spontaneous and phasic venous flow is demonstrated with Doppler. Normal flow augmentation with calf compression is demonstrated. The deep calf veins, as visualized, are compressible. Procedure Note Keiko Schulte MD - 12/25/2024 History: Right lower extremity swelling. Findings: Duplex and color Doppler imaging of the deep venous system of the rightlower extremity was performed from the inguinal ligament to the poplitealfossa. The common femoral, femoral and popliteal veins are patent andcompress completely. Normal spontaneous and phasic venous flow isdemonstrated with Doppler. Normal flow augmentation with calf compressionis demonstrated. The deep calf veins, as visualized, are compressible. IMPRESSION: Impression: No evidence of deep vein thrombosis in the right femoral-popliteal venoussegment. Telerad BRADEN ([id number]) -------- FINAL REPORT -------- Dictated By: Keiko Schulte Dictated Date: 12/25/2024 16:22 ET Assigned Physician: Keiko Schulte Reviewed and Electronically Signed By: Keiko Schulte Signed Date: 12/25/2024 16:23 ET Workstation ID: [id number] Transcribed By: Self Edit Transcribed Date: 12/25/2024 16:22 ET Amy Hassan NP CV VASCULAR PROCEDURES Final Re sult * (ABNORMAL) Lipid panel with reflex to direct LDL (10/27/2024 11:12 AM EDT) Cholesterol 155 0 - 200 mg/dL LAB CHEMISTRY METHOD 10/27/2024 2:47 PM EDT [facility] Triglycerides 168(H) 0 - 150 mg/dL LAB CHEMISTRY METHOD 10/27/2024 2:47 PM EDT [facility] HDL 38(L) >=40 mg/dL LAB CHEMISTRY METHOD 10/27/2024 2:47 PM EDT [facility] LDL Calculated 83 0 - 100 mg/dL LAB CHEMISTRY METHOD 10/27/2024 2:47 PM EDT [facility] VLDL Cholesterol [place] 33.6 mg/dL LAB CHEMISTRY METHOD 10/27/2024 2:47 PM EDT [facility] Non HDL Chol. (LDL+VLDL) 117 <145 mg/dL LAB CHEMISTRY METHOD 10/27/2024 2:47 PM EDT [facility] Chol/HDL Ratio 4.1 0.0 - 4.4 LAB CHEMISTRY METHOD 10/27/2024 2:47 PM EDT [facility] Blood Venous blood specimen / Unknown Venipuncture / Unknown 10/27/2024 11:12 AM EDT 10/27/2024 11:12 AM EDT Shankar Montez MD LAB BLOOD ORDERABLES Final Res ult [facility] [address] [place] [address], * (ABNORMAL) Microalbumin creatinine urine ratio (10/27/2024 11:12 AM EDT) Creatinine, Urine 110.0 mg/dL LAB CHEMISTRY METHOD 10/27/2024 4:56 PM EDT [facility] Microalb, Ur 110.0(H) 0.0 - 29.0 mg/L LAB CHEMISTRY METHOD 10/27/2024 4:56 PM EDT [facility] Microalb/Crea t Ratio 100(H) <30 mg/g creat LAB CHEMISTRY METHOD 10/27/2024 4:56 PM EDT [facility] Urine Urine specimen obtained by clean catch procedure / Unknown Non-blood Collection / Unknown 10/27/2024 11:12 AM EDT 10/27/2024 11:12 AM EDT us Shankar Montez MD LAB URINE ORDERABLES Final Res ult Performing Organization Address [facility]/ZIP Co de Phone Number [facility] [address] [place] [address], [place] [phone] * (ABNORMAL) Hemoglobin A1c (10/27/2024 11:12 AM EDT) Hemoglobin A1C 6.8(H) <6.5 % LAB CHEMISTRY METHOD 10/27/2024 3:03 PM EDT [facility] Mean Bld Glu Estim. 148 mg/dL LAB CHEMISTRY METHOD 10/27/2024 3:03 PM EDT [facility] Blood Venous blood specimen / Unknown Venipuncture / Unknown 10/27/2024 11:12 AM EDT 10/27/2024 11:12 AM EDT us Shankar Montez MD LAB BLOOD ORDERABLES Final Res ult [facility] [address] [place] [address], [place] [phone] * (ABNORMAL) Comprehensive metabolic panel (10/27/2024 11:12 AM EDT) Sodium 138 133 - 145 mmol/L LAB CHEMISTRY METHOD 10/27/2024 3:35 PM EDT [facility] Potassium 4.2 3.5 - 5.5 mmol/L LAB CHEMISTRY METHOD 10/27/2024 3:35 PM [facility] Chloride 103 96 - 110 mmol/L LAB CHEMISTRY METHOD 10/27/2024 3:35 PM [facility] CO2 30 21 - 32 mmol/L LAB CHEMISTRY METHOD 10/27/2024 3:35 PM [facility] Anion Gap 5 3 - 11 LAB CHEMISTRY METHOD 10/27/2024 3:35 PM [facility] Glucose 102(H) 70 - 100 mg/dL LAB CHEMISTRY METHOD 10/27/2024 3:35 PM [facility] BUN 13 5 - 25 mg/dL LAB CHEMISTRY METHOD 10/27/2024 3:35 PM [facility] Creatinine 0.90 0.70 - 1.30 mg/dL LAB CHEMISTRY METHOD 10/27/2024 3:35 PM [facility] eGFR 92 >=60 mL/min/1. 73m2 LAB CHEMISTRY METHOD 10/27/2024 3:35 PM [facility] Comment:Calculation based on the Chronic Kidney Disease Epidemiology Collaboration (CKD-EPI) equation refit without adjustment for race. BUN/Creatinine Ratio 14.4 LAB CHEMISTRY METHOD 10/27/2024 3:35 PM [facility] Calcium 9.1 8.5 - 10.5 mg/dL LAB CHEMISTRY METHOD 10/27/2024 3:35 PM [facility] AST (SGOT) 40 10 - 42 unit/L LAB CHEMISTRY METHOD 10/27/2024 3:35 PM [facility] Comment:Results verified by repeat testing ALT (SGPT) 56 10 - 60 unit/L LAB CHEMISTRY METHOD 10/27/2024 3:35 PM [facility] Alkaline Phosphatase 81 42 - 121 unit/L LAB CHEMISTRY METHOD 10/27/2024 3:35 PM EDT [facility] Total Protein 7.1 6.0 - 8.0 g/dL LAB CHEMISTRY METHOD 10/27/2024 3:35 PM EDT [facility] Albumin 3.5 3.2 - 5.0 g/dL LAB CHEMISTRY METHOD 10/27/2024 3:35 PM EDT [facility] Total Bilirubin 1.5(H) 0.0 - 1.4 mg/dL LAB CHEMISTRY METHOD 10/27/2024 3:35 PM EDT [facility] Blood Venous blood specimen / Unknown Venipuncture / Unknown 10/27/2024 11:12 AM EDT 10/27/2024 11:12 AM EDT us Shankar Montez MD LAB BLOOD ORDERABLES Final Res ult [facility] [address] [place] [address], * COLONOSCOPY Anesthesia - MAC; [facility] ENDOSCOPY (10/25/2024 12:35 PM EDT) Anatomical Region Laterality Modality Endoscopy 10/25/2024 12:1 7 PM EDT Impressions 10/25/2024 12:35 PM EDT - One 7 mm polyp in the descending colon, removed with a cold snare. Resected and retrieved. - Four 6 to 8 mm polyps in the transverse colon, removed with a cold snare. Resected and retrieved. - One 8 mm polyp at the appendiceal orifice, removed with a hot snare. Resected and retrieved. - The examination was otherwise normal on direct and retroflexion views. Recommendation: - Await pathology results. - Repeat colonoscopy in 2 years for surveillance of multiple polyps. Narrative 10/25/2024 12:35 PM EDT [facility] GI Patient Name: Mariah Terry Procedure Date: 10/25/2024 12:17 PM Date of : 1955 Age: 69 Room: ROOM 15 Gender: Male Note Status: Finalized Attending MD: Lm Dobbins MD, Procedure Date No Time: 10/25/2024 Procedure: Colonoscopy Indications: Screening for colorectal malignant neoplasm Providers: Lm Dobbins MD Referring MD: Lm Dobbins MD Medicines: Propofol per Anesthesia Complications: No immediate complications. Estimated Blood Loss: Estimated blood loss: none. Estimated blood loss was minimal. Procedure: After I obtained informed consent, the scope was passed under direct vision. Throughout the procedure, the patient's blood pressure, pulse, and oxygen saturations were monitored continuously.The Colonoscope was introduced through the anus and advanced to 3 cm into the ileum. The colonoscopy was performed without difficulty. The patient tolerated the procedure well. The quality of the bowel preparation was good. Findings: The perianal and digital rectal examinations were normal. A 7 mm polyp was found in the descending colon. The polyp was sessile. The polyp was removed with a cold snare. Resection and retrieval were complete. Four sessile polyps were found in the transverse colon. The polyps were 6 to 8 mm in size. These polyps were removed with a cold snare. Resection and retrieval were complete. An 8 mm polyp was found in the appendiceal orifice. The polyp was sessile. The polyp was removed with a hot snare. Resection and retrieval were complete. The exam was otherwise without abnormality on direct and retroflexion views. Procedure Code(s): --- Professional --- 95800, Colonoscopy, flexible; with removal of tumor(s), polyp(s), or other lesion(s) by snare technique Diagnosis Code(s): --- Professional --- Z12.11, Encounter for screening for malignant neoplasm of colon D12.4, Benign neoplasm of descending colon D12.1, Benign neoplasm of appendix D12.3, Benign neoplasm of transverse colon (hepatic flexure or splenic flexure) CPT copyright 2020 [employer]. All rights reserved. The codes documented in this report are preliminary and upon end finder twisting department review may be revised to meet current compliance requirements. Lm Dobbins MD 10/25/2024 12:35:17 PM This report has been signed electronically.Lm Dobbins MD Number of Addenda: 0 Note Initiated On: 10/25/2024 12:17 PM Scope In: Scope Out: Endoscopy Department at [facility] - [address] [place], [place] [address] Procedure Note Lm Dobbins MD - 10/25/2024 [facility] GI Patient Name: Mariah Terry Procedure Date: 10/25/2024 12:17 PM Date of : 1955 Age: 69 Room: ROOM 15 Gender: Male Note Status: Finalized Attending MD: Lm Dobbins MD, Procedure Date No Time: 10/25/2024 Procedure: Colonoscopy Indications: Screening for colorectal malignant neoplasm Providers: Lm Dobbins MD Referring MD: Lm Dobbins MD Medicines: Propofol per Anesthesia Complications: No immediate complications. Estimated Blood Loss: Estimated blood loss: none. Estimated blood loss was minimal. Procedure: After I obtained informed consent, the scope was passed under direct vision. Throughout theprocedure, the patient's blood pressure, pulse, and oxygen saturations were monitored continuously.The Colonoscope was introduced through the anus and advanced to 3 cm into the ileum. The colonoscopywas performed without difficulty. The patient tolerated the procedure well. The quality of the bowel preparation was good. Findings: The perianal and digital rectal examinations were normal. A 7 mm polyp was found in the descending colon. The polyp was sessile. The polyp was removed with acold snare. Resection and retrieval were complete. Four sessile polyps were found in the transverse colon. The polyps were 6 to 8 mm in size. Thesepolyps were removed with a cold snare. Resection and retrieval were complete. An 8 mm polyp was found in the appendiceal orifice. The polyp was sessile. The polyp was removed with a hot snare. Resection and retrieval were complete. The exam was otherwise without abnormality ondirect and retroflexion views. Procedure Code(s): --- Professional --- 66164, Colonoscopy, flexible; with removal of tumor(s), polyp(s), or other lesion(s) by snare technique Diagnosis Code(s): --- Professional --- Z12.11, Encounter for screening for malignantneoplasm of colon D12.4, Benign neoplasm of descending colon D12.1, Benign neoplasm of appendix D12.3, Benign neoplasm of transverse colon (hepatic flexure or splenic flexure) CPT copyright 2020 [employer]. All rights reserved. The codes documented in this report are preliminary and upon end finder twisting department reviewmay be revised to meet current compliance requirements. Lm Dobbins MD 10/25/2024 12:35:17 PM This report has been signed electronically.Lm Dobbins MD Number of Addenda: 0 Note Initiated On: 10/25/2024 12:17 PM Scope In: Scope Out: Endoscopy Department at [facility] - [address] [place] [id number] IMPRESSION: - One 7 mm polyp in the descending colon, removed with a cold snare. Resected and retrieved. - Four 6 to 8 mm polyps in the transverse colon, removed with a cold snare. Resected andretrieved. - One 8 mm polyp at the appendiceal orifice,removed with a hot snare. Resected and retrieved. - The examination was otherwise normal on directand retroflexion views. Recommendation: - Await pathology results. - Repeat colonoscopy in 2 years for surveillance of multiple polyps. Lm Dobbins MD GI~PROCEDURE ORDERABLES Fin al Result * External Diabetic Retina Eye Exam Report (08/14/2024) Anatomical Region Laterality Modality Ultrasound Provider [facility] US PROCEDURES Final Result * Depression Screening (12/02/2023) Depression Screening abstracted Historical Provider HEALTH MAINTENANCE Final Result * Hepatitis C Screening (01/06/2018) Hepatitis C Screening abstracted Historical Provider HEALTH MAINTENANCE Final Result from Last 3 Months or Most Recently Relevant to Health Maintenance Insurance [employer] Advance Directives * Full Code - Default (Latest Code Status on File) Date Activated Date Inactivated Comments 09/30/2024 4:34 PM 10/02/2024 2:22 PM This is orde r is used when code status has not been discussed with the patient, or code status is otherwise unknown/unconfirmed To update the patient's code status, place a code status order. Do not modify or discontinue any currently active code status orders. Care Teams Integration Architect Relationship Specialty Start Date End Date Shankar Montez MD [address] [place] [id number] PCP - General Internal Medicine 07/10/24
== END 2025-03-15 14:18 | disposition home or self-care (01) ==
LOC: HO.LAB 14:17
PROVIDERS: PCP Internal Medicine; Visit Provider Student in an Organized Health Care Education/Training Program
DX: M05.9 Rheumatoid arthritis with rheumatoid factor, unspecified (principal)
CPT/HCPCS: 36415; 80053; 85025; 85652; 86140

== ENCOUNTER 2025-03-22 14:04 | Outpatient (AMB) | payer OTHER, SELFPAY ==
--- NOTE | 2025-03-22 14:21 | A.OFFVIS_ITS ---
Vital Signs 03/22/25 14:29 Height 5 ft 10 in Weight 204 lb 9.423 oz BMI 29.4 BP 132/80 Blood Pressure Location Lt brachial Position Sitting Pulse 95 Pulse Source Pulse Oximeter Pulse Oximetry (%) 99 Oxygen Delivery Method Room Air Intake Visit Reasons: RA Intake Note: Patient presents for RA follow up. Allergies NUTS Allergy (Intermediate, Uncoded 03/21/24 09:18) ITCHY THROAT STRAWBERRY Allergy (Intermediate, Uncoded 03/21/24 09:18) ITCHY THROAT Medication List - Last Reconciled 03/22/25 by Jade Rubio MD albuterol sulfate 90 mcg/actuation (ProAir HFA) 2 puffs inhalation Q6H PRN finasteride 5 mg PO DAILY folic acid 1 mg PO DAILY Humira(CF) Pen (adalimumab) 40 mg (0.4 mL) subcut Q2W NS hydrochlorothiazide 25 mg PO DAILY lisinopril 20 mg PO DAILY metformin ER 500 mg PO BID methotrexate sodium 15 mg (6 x 2.5 mg) PO QWEEK 90 days prednisone 5 mg PO DAILY tadalafil 5 mg PO DAILY HPI Comments Details: Patient is a 69-year-old male with seropositive nonerosive rheumatoid arthritis and secondary wrist osteoarthritis who presents for follow-up. Interval History: Last seen 11/22/2024 with me. - On Humira 40 mg SC every other week, methotrexate 15 mg weekly, folic acid 1 mg daily, prednisone 5mg daily - Doing well - Complaining of bilateral wrist pain and swelling - s/p steroid injection to bilateral wrists Today - On Humira 40 mg SC every other week, methotrexate 15 mg weekly, folic acid 1 mg daily, Prednisone 5mg daily - Wrists doing okay after injection - No significant complaints Rheumatologic History: Onset mid-2007; pos RF, MARCO. CCP Ab. sulfasalazine started 2008 - Stopped 05/2024 Methotrexate added 12/29; ran out of methtrexate November 2021; methotrexate restarted 03/2022 Humira started 11/2023 Current Rheum Medications: Humira 40mg SC every other week Methotrexate 15mg weekly Folic acid 1mg daily Prednisone 5mg PFSH Medical History (Updated 11/22/24 @ 08:45 by TOMER Avitia) Cataract, left eye Adalimumab (Humira) long-term use Methotrexate, termite exterminator, current use Low grade B cell lymphoproliferative disorder Osteoarthritis of both wrists Screening examination for infectious disease BPH associated with nocturia Hypertension Type II diabetes mellitus with nephropathy Seropositive rheumatoid arthritis Family History (Updated 03/22/25 @ 14:28 by TOMER Avitia) Mother Diabetes Father Hypertension Stroke Social History Household Members: Spouse Housing: House Are you a primary field care coordinator to a significant other at home: No Do you presently have visiting nurse or other home services: No 75 years or older and lives alone: No Alcohol intake: never Patient Tobacco Use Status: Former Tobacco user Years Smoked: 12-13 years ago e-Cigarette/Vaping Use: Never Used service: No Current occupational status: employed 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 Review of Systems Const Details: Review of Systems Constitutional: Denies fever, chills, weight loss ENT: Denies vision changes, eye pain or eye redness, dental caries, dry mouth GI: Denies nausea, vomiting, diarrhea, abdominal pain, change in BM Pulm: Denies SOB, CHAMPION, hemoptysis, wheezing Cards: Denies chest pain, palpitations Skin: Denies Raynaud's, rash, nail changes, photosensitivity, PRODUCTION ENGINE REPAIRER: Denies headaches, weakness, paresthesias, recurrent falls MSK: as per HPI All other systems reviewed and are unremarkable except noted above Physical Exam Exam Exam: Vital signs reviewed Physical Examination CONSTITUITIONAL Patient alert and cooperative. Well appearing and in no apparent painful distress MSK Hands * Right Hand: Able to make a fist. No swelling or tenderness to palpation of the MCPs, PIPs or DIPs. * Left Hand: Able to make a fist. No swelling or tenderness to palpation of the MCPs, PIPs or DIPs. * Herbedens nodes noted bilaterally Wrists * Right Wrist: Decreased ROM. No swelling or TTP. Synovial hypertrophy noted * Left Wrist: Decreased ROM. No swelling or TTP. Synovial hypertrophy noted Elbows * Right Elbow: Full ROM. No swelling or TTP. No TTP of the medial epicondyle. No TTP of the lateral epicondyle * Left Elbow: Full ROM. No swelling or TTP. No TTP of the medial epicondyle. No TTP of the lateral epicondyle Shoulders * Right shoulder: Full ROM. No swelling noted. No TTP of the AC joint. No TTP of the subacromial bursa. No TTP of the posterior shoulder * Left shoulder: Full ROM. No swelling noted. No TTP of the AC joint. No TTP of the subacromial bursa. No TTP of the posterior shoulder Knees * Right knee: Full ROM. No swelling noted. No TTP of the knee joint line. No TTP of pes anserine bursa * Left knee: Full ROM. No swelling noted. No TTP of the knee joint line. No TTP of pes anserine bursa. * Crepitations felt bilaterally Ankles * Right ankle: Good ankle dorsiflexion and plantar flexion. No swelling. No TTP of the ankle joint * Left ankle: Good ankle dorsiflexion and plantar flexion. No swelling. No TTP of the ankle joint Feet * Right foot: Negative squeeze test * Left foot: Negative squeeze test Tender points? * No tenderness to palpation of the bilateral trapezius, supraspinatus, anterior costochondral junctions, bilateral suboccipital muscle insertions SKIN No rashes Vital Signs: Last Vital Signs Pulse 95 03/22/25 14:29 BP 132/80 03/22/25 14:29 Pulse Ox 99 03/22/25 14:29 Oxygen Delivery Method Room Air 03/22/25 14:29 BMI result Body Mass Index 29.4 Results Reviewed Results Reviewed: Laboratory Tests 03/15/25 14:40 WBC 8.0 RBC 4.94 Hgb 15.5 Hct 45.5 Plt Count 186 ESR 8 Sodium 140 Potassium 3.5 Chloride 102 Carbon Dioxide 31 H BUN 15 Creatinine 0.89 Total Bilirubin 1.4 H AST 48 H ALT 56 H C-Reactive Protein 0.16 Laboratory Tests 07/27/23 09:19 Hepatitis A IgM Ab Nonreactive Hep Bs Antigen Negative Hep Bs Antibody NONREACTIVE Hep B Core Total Ab Nonreactive Hepatitis C Ab (EIA) Nonreactive Assessment & Plan Assessment & Plan (1) Seropositive rheumatoid arthritis: Comment: Onset mid-2007; pos RF, MARCO. CCP Ab. sulfasalazine started 2008 Methotrexate added 12/29; ran out of methtrexate November 2021; methotrexate re started 03/2022 Code(s): M05.9 - Rheumatoid arthritis with rheumatoid factor, unspecified Category: Medical Plan: #Seropositive RA Patient is a 69-year-old male with seropositive rheumatoid arthritis here today for follow up. Currently in remission on Humira and Mtx. Need to decrease MTx due to persistently elevated LFTs Plan - Humira 40mg SC every 2 weeks - MTx 10mg every week - Folic Acid 1mg daily - RTC 4 months - Labs before visit: CBC, CMP, ESR, CRP, hepatitis panel, T spot (2) Osteoarthritis of both wrists: Code(s): M19.031 - Primary osteoarthritis, right wrist; M19.032 - Primary osteoarthritis, left wrist Category: Medical Qualifiers: Osteoarthritis type: other secondary Qualified Code(s): M19.231 - Secondary osteoarthritis, right wrist; M19.232 - Secondary osteoarthritis, left wrist Plan: #OA of wrists Patient with likely secondary OA to the wrists from RA Received injection 03/2024, 11/2024 Plan - Topical diclofenac up to 4 times a day (3) Transaminitis: Code(s): R74.01 - Elevation of levels of liver transaminase levels Plan: #Transaminitis Patient with new transaminitis without history of EtOH use/abuse, tylenol or NSAID use Decrease methotrexate Plan - CMP in 4 weeks (4) Methotrexate, mcc, current use: Code(s): Z79.631 - terminal gauger (current) use of antimetabolite agent Category: Medical Plan: #Long-term Current Use of Methotrexate Discussed with patient the benefits and risks of methotrexate for managing their rheumatic condition Benefits include reduced pain, reduced mortality, maintenance of remission and reduction of flares Risks include oral ulcers, photosensitivity, hepatotoxicity, hematologic toxicity, pneumonitis, flu-like symptoms (especially day after administration), nodulosis, lymphomas ? Limit alcohol and avoid Bactrim ? Monitoring: ?CBC, BMP, LFTs every 3-4 months and hepatitis serologies as needed (5) Adalimumab (Humira) long-term use: Code(s): Z79.620 - terminal gauger (current) use of immunosuppressive biologic Category: Medical Plan: #Long-term Use of TNF Inhibitors: Humira Discussed with the patient the benefits and risks of TNF inhibitors for the management of the rheumatic condition Benefits include reduce pain, maintenance of remission and reduction of flares as well as ?progression of the disease Risks include injection sites/infusion reactions, serious infections (such as bacterial infections, opportunistic infections), malignancy, delaminating syndromes, autoimmune phenomena, CHF exacerbations, palmar plantar psoriasis and cytopenias Recommended rotating injection sites, and holding medication during and for up to 1 week after resolution of a febrile illness or open skin wound Plan I spent 30 minutes reviewing the record and labs, taking a history, examining the patient, discussing the treatment plan and documenting in the medical record Orders: Orders Complete Blood Count Auto Diff 4 Months Z. - Other mcc (current) drug therapy Comprehensive Met. Panel 4 Months Z - Other mcc (current) drug therapy Erythrocyte Sedimentation Rate 4 Months Z. - Other termite exterminator (current) drug therapy Hepatitis B,C Profile 4 Months Z. - Other termite exterminator (current) drug therapy C Reactive Protein 4 Months Z. - Other termite exterminator (current) drug therapy T Spot TB 4 Months Z. - Other termite exterminator (current) drug therapy Comprehensive Met. Panel 4 Weeks Z - Other termite exterminator (current) drug therapy Medications: Changed From methotrexate sodium 15 mg (6 x 2.5 mg) PO QWEEK 90 days 78 tabs 1RF M05.9 - Rheumatoid arthritis with rheumatoid factor, unspecified To methotrexate sodium 10 mg (4 x 2.5 mg) PO QWEEK 52 tabs 1RF 90 days M05.9 - Rheumatoid arthritis with rheumatoid factor, unspecified Refilled Humira(CF) Pen (adalimumab) 40 mg (0.4 mL) subcut Q2W 2 ea 5RF NS M05.9 - Rheumatoid arthritis with rheumatoid factor, unspecified folic acid 1 mg PO DAILY 90 tabs 1RF M05.9 - Rheumatoid arthritis with rheumatoid factor, unspecified prednisone 5 mg PO DAILY 30 tabs 5RF M05.9 - Rheumatoid arthritis with rheumatoid factor, unspecified Coding Level of Care Code Est Pt Level 4 (49967) Complex EM visit Add On G2211 Diagnoses Seropositive rheumatoid arthritis M05.9 Other secondary osteoarthritis of both wrists M19.231; M19.232 Osteoarthritis type: other secondary Transaminitis R74.01 Methotrexate, mcc, current use Z79.631 Adalimumab (Humira) long-term use Z79.620
[2025-03-22 14:29] VITALS: BP 132/80; PULSE 95; O2SAT 99; BMI 29.4
== END 2025-03-22 15:03 | disposition home or self-care (01) ==
LOC: HO.RHES 14:04
PROVIDERS: PCP Internal Medicine; Visit Provider Student in an Organized Health Care Education/Training Program
DX: M05.9 Rheumatoid arthritis with rheumatoid factor, unspecified (principal); M19.231 Secondary osteoarthritis, right wrist; M19.232 Secondary osteoarthritis, left wrist; R74.01 Elevation of levels of liver transaminase levels; Z79.631 Long term (current) use of antimetabolite agent; Z79.620 Long term (current) use of immunosuppressive biologic
CPT/HCPCS: 99214; G2211